=== PATIENT | male | born 1985 | race Caucasian/White ===

== ENCOUNTER 2018-08-01 09:49 | Day surgery (SDC) | payer OTHER ==
[2018-07-25 14:25] VITALS: BMI 31.5
[2018-08-01 10:54] VITALS: TEMP 98.1
[2018-08-01] MEDS ORDERED: PROPOFOL 20 ML ONE (11:32)
[2018-08-01] MEDS ORDERED: LIDOCAINE HCL/PF 2% SDV 5ML VIAL ONE (11:32)
[2018-08-01] MEDS ORDERED: MIDAZOLAM HCL 2 MG/2 ML SINGLE DOSE VIAL ONE ×2 (11:42)
[2018-08-01 12:42] VITALS: BP 124/76; PULSE 89
--- NOTE | 2018-08-03 12:31 | PATH ---
Surgical Pathology Report Patient Name: DMITRIY LIANG [facility]. Rec. #: [id number] /Age/Gender: 1985 (Age: 33) / M Account: [id number] Location: [facility] Taken: 08/01/2018 Received: 08/01/2018 Reported: 08/03/2018 Physicians: Ayah Beckford M.D. Specimen(s) Received A: SECOND PORTION DUODENUM B: BX ANTRUM C: BX GE JUNCTION Clinical History GI bleed Postoperative diagnosis: Gastritis Final Diagnosis A. SECOND PORTION OF DUODENUM, BIOPSY: DUODENAL MUCOSA WITH NO PATHOLOGIC FINDINGS. B. ANTRUM, BIOPSY: MILD CHRONIC GASTRITIS. IMMUNOSTAIN IS NEGATIVE FOR H. PYLORI ORGANISMS. C. GE JUNCTION, BIOPSY: COLUMNAR (GASTRIC CARDIA-TYPE) MUCOSA SHOWING MILD CHRONIC INFLAMMATION. NEGATIVE FOR INTESTINAL METAPLASIA. NO ESOPHAGEAL (SQUAMOUS) MUCOSA IS IDENTIFIED. Electronically Signed Maryuri Chow M.D. Gross Description A. Received in formalin, labeled "biopsy second portion of duodenum" is a yepez, irregular portion of soft tissue measuring 0.6 cm. in greatest dimension. The specimen is submitted in toto in one cassette. B. Received in formalin, labeled "antrum" is a yepez, irregular portion of soft tissue measuring 0.3 cm. in greatest dimension. The specimen is submitted in toto in one cassette. C. Received in formalin, labeled "GE junction" is a yepez, irregular portion of soft tissue measuring 0.4 cm. in greatest dimension. The specimen is submitted in toto in one cassette. 08/01/201808/01/2018
== END 2018-08-01 12:45 | disposition home or self-care (01) ==
LOC: FASU-ENDO 09:49
PROVIDERS: ATTEND Internal Medicine Gastroenterology
PROC: 0DB68ZX Excision of Stomach, Via Natural or Artificial Opening Endoscopic, Diagnostic (ICD-10-PCS; 2018-08-01)
PROC: 0DB58ZX Excision of Esophagus, Via Natural or Artificial Opening Endoscopic, Diagnostic (ICD-10-PCS; 2018-08-01)
PROC: 0DB98ZX Excision of Duodenum, Via Natural or Artificial Opening Endoscopic, Diagnostic (ICD-10-PCS; principal; 2018-08-01 12:02)
DX: K29.50 Unspecified chronic gastritis without bleeding (principal); K92.0 Hematemesis
CPT/HCPCS: 76700-TC; 88305-TC; 88342-TC

== ENCOUNTER 2018-10-29 06:32 | Day surgery (SDC) | payer OTHER ==
[2018-10-25 15:18] VITALS: BMI 30.4
[2018-10-29 07:26] LABS: COCAINE, UR NEGATIVE ng/ml (CUTOFF=300); METHADONE, UR NEGATIVE ng/ml (CUTOFF=300); PHENCYCLIDINE,URINE NEGATIVE ng/ml (CUTOFF=25); URINE AMPHETAMINES NEGATIVE ng/ml (CUTOFF=500); URINE BARBITURATES NEGATIVE ng/ml (CUTOFF=200); URINE BENZODIAZEPINES NEGATIVE ng/ml (CUTOFF=200)
[2018-10-29 07:31] LABS: OPIATES, URI POSITIVE ng/ml (CUTOFF=300)
[2018-10-29] MEDS ORDERED: BUPIVACAINE HCL/PF 0.25% (2.5MG/ML) 10 ML VIAL ONE (07:38)
[2018-10-29] MEDS ORDERED: methylPREDNISolone ACET (DEPO) 80 MG/1 ML VIAL ONE (07:38)
[2018-10-29] MEDS ORDERED: MIDAZOLAM HCL 2 MG/2 ML SINGLE DOSE VIAL ONE ×5 (08:46→08:58)
[2018-10-29] MEDS ORDERED: DEXAMETHASONE SOD PHOSPHATE 4 MG/1 ML VIAL ONE (08:49)
[2018-10-29] MEDS ORDERED: oxyCODONE HCL 5 MG TABLET PO PRN (08:57)
[2018-10-29] MEDS ORDERED: ONDANSETRON 4 MG/2 ML VIAL IVPUSH PRN (08:57)
[2018-10-29] MEDS ORDERED: LACTATED RINGERS SOLUTION 1,000 ML IV SCH (09:00)
[2018-10-29] MEDS ORDERED: BUPIVACAINE HCL/PF 0.25% (2.5MG/ML) 10 ML VIAL IJ ONE (09:03)
[2018-10-29] MEDS ORDERED: methylPREDNISolone ACET (DEPO) 80 MG/1 ML VIAL IM ONE (09:04)
[2018-10-29] MEDS ORDERED: LIDOCAINE HCL 1%, 10 MG/ML (20ML VIAL) NR ONE ×2 (09:04)
[2018-10-29 10:24] VITALS: TEMP 98
[2018-10-29 11:00] VITALS: BP 138/82; PULSE 75
--- NOTE | 2018-10-30 06:54 | OP ---
DATE OF OPERATION: 10/29/2018 PREOPERATIVE DIAGNOSES: 1. 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 2. Hepatitis C. 3. Alcohol dependence. POSTOPERATIVE DIAGNOSES: 1. 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 2. Hepatitis C. 3. Alcohol dependence. ATTENDING SURGEON: Delta Vargas MD PROCEDURE: 1. Right L5-S1 epidural injection. 2. Intraoperative fluoroscopy/. ANESTHESIA: Local with IV sedation. SAMPLE CASE PORTER: CHARGE WEIGHER ESTIMATED BLOOD LOSS: Minimal. INDICATION: The patient is a 33-year-old male with intractable lower back pain, right greater than left, lower extremity radiculopathy. Because of intractable symptoms and failure of conservative treatment he is here for 1st epidural steroid injection. The risks of the procedure include but are not limited to bleeding, infection, spinal headache and neurological injury. The patient understands indication for the procedure, procedure in detail, risks and benefits and alternatives for treatment for his lumbar condition and wished to proceed with injection. No guarantees were given for a favorable outcome. This is the 1st injection. Because he has a history of alcohol dependence and recently abstaining from taking alcohol, he has some tremor this morning. Discussion was made with the anesthesia service and the patient will be given Versed for withdrawal prophylaxis as well as for his anxiety. PROCEDURE IN DETAIL: After the patient was taken to the operating room he was placed in the prone position with a pillow under his hips. Lumbar region cleaned with alcohol and prepped with Betadine. Skin wheal was raised with 5 mL of 1% lidocaine. A 22-gauge spinal needle was inserted under AP and lateral fluoroscopic guidance from a right-sided approach to the lateral recess of L5-S1. Loss of resistance technique was utilized. There was no CSF or blood backflow. Needle position was verified with AP and lateral fluoroscopic guidance. The needle was turned cephalad and 80 mg of Depo-Medrol and 2 mL of 0.25% Marcaine were injected. The needle was withdrawn and sterile bandage was applied. The patient tolerated the procedure well, was turned back to the supine position, moving bilateral extremities well. He did not complain of headache. Rad STEVEN/[id number]
== END 2018-10-29 11:06 | disposition home or self-care (01) ==
LOC: JASU-SURG 06:32
PROVIDERS: ATTEND Neurological Surgery
PROC: 3E0R33Z Introduction of Anti-inflammatory into Spinal Canal, Percutaneous Approach (ICD-10-PCS; 2018-10-29)
PROC: B01BZZZ Fluoroscopy of Spinal Cord (ICD-10-PCS; 2018-10-29)
PROC: 3E0R3BZ Introduction of Anesthetic Agent into Spinal Canal, Percutaneous Approach (ICD-10-PCS; principal; 2018-10-29 08:30)
DX: M51.17 Intervertebral disc disorders with radiculopathy, lumbosacral region (principal); J45.909 Unspecified asthma, uncomplicated; B19.20 Unspecified viral hepatitis C without hepatic coma; E66.9 Obesity, unspecified; F10.20 Alcohol dependence, uncomplicated
CPT/HCPCS: 36415; 80307; 94760

== ENCOUNTER 2018-11-26 07:04 | Day surgery (SDC) | payer OTHER | END 2018-11-26 09:35 | disposition home or self-care (01) | LOC: JASU-SURG 07:04 ==

== ENCOUNTER 2019-01-25 11:37 | Inpatient (IN) | payer OTHER ==
[2019-01-25] MEDS ORDERED: SODIUM CHLORIDE 1,000 ML IV STA (12:30)
[2019-01-25] MEDS ORDERED: diazePAM 5 MG TABLET PO ONE (12:32)
[2019-01-25] MEDS ORDERED: ONDANSETRON 4 MG/2 ML VIAL IVPUSH ONE (12:32)
[2019-01-25] MEDS ORDERED: FAMOTIDINE 20 MG/50 ML IVPB 20 MG/50 ML MG IVPB ONE ×2 (12:32→13:25)
[2019-01-25] MEDS ORDERED: oxyCODONE HCL 5 MG TABLET PO ONE (12:48)
[2019-01-25] MEDS ORDERED: ONDANSETRON 4 MG/2 ML VIAL ONE (13:25)
[2019-01-25] MEDS ORDERED: oxyCODONE HCL 5 MG TABLET ONE (13:25)
[2019-01-25] MEDS ORDERED: diazePAM 5 MG TABLET ONE (13:38)
[2019-01-25 14:05] LABS: BASO % 0.4 % (0-2.0); EOS % 1.8 % (0-4.5); HEMATOCRIT 41.7 % (35.4-49); HEMOGLOBIN 14.6 GM/dL (11.7-16.9); LYMPH % 12.5 % (8-40); MCHC 34.9 g/dl (32.0-35.9); MEAN CELL VOLUME 120.2 fl (80-96); MEAN PLT VOLUME 8.1 fl (7.5-11.1); MONO % 4.7 % (3.8-10.2); NEUT % 80.6 % (42.8-82.8); PLATELET COUNT 167 K/MM3 (134-434); RBC 3.47 M/mm3 (4.00-5.60); RDW 14.8 % (11.9-15.9); WHITE BLOOD COUNT 9.3 K/mm3 (4.0-10.0)
[2019-01-25 14:42] LABS: ALBUMIN 4.1 g/dl (3.4-5.0); BILIRUBIN,TOTAL 1.7 mg/dL (0.2-1); CALCIUM 9.8 mg/dL (8.5-10.1); CREATININE 0.5 mg/dL (0.55-1.3); MAGNESIUM 1.7 mg/dL (1.8-2.4); POTASSIUM 3.9 mmol/L (3.5-5.1); TOT PROT 8.3 g/dl (6.4-8.2)
--- NOTE | 2019-01-25 14:49 | PDOC ---
History of Present Illness - General History Source: Patient Exam Limitations: No Limitations <Maribel Ortiz - Last Filed: 01/25/19 15:33> <Mary Carty - Last Filed: 01/26/19 07:33> - General Chief Complaint: Pain Stated Complaint: SENT BY PCP, DETOX FROM ALCOHOL Time Seen by Provider: 01/25/19 12:06 Past History - Past Medical History Anemia: Yes (YRS AGO- RESOLVED) Asthma: Yes (CHILDHOOD ONLY) Cancer: No Cardiac Disorders: No CVA: No COPD: No CHF: No Dementia: No Diabetes: No GI Disorders: Yes (REFLUX) Disorders: No HTN: No Hypercholesterolemia: No Liver Disease: Yes (HEP C) Seizures: Yes (2016-DRUG WITHDRAWAL) Thyroid Disease: No - Surgical History Abdominal Surgery: No Appendectomy: No Cardiac Surgery: No Cholecystectomy: No Lung Surgery: No Neurologic Surgery: No Orthopedic Surgery: Yes (LEFT WRIST) - Suicide/Smoking/Psychosocial Hx Smoking History: Current every day smoker Have you smoked in the past 12 months: Yes Number of Cigarettes Smoked Daily: 8 Information on smoking cessation initiated: Yes 'Breaking Loose' booklet given: 10/25/18 Hx Alcohol Use: Yes Drug/Substance Use Hx: No Substance Use Type: Alcohol, Marijuana, Opiates, Tranquilizers Hx Substance Use Treatment: Yes (LAST COCAINE USE- 2011) <Maribel Ortiz - Last Filed: 01/25/19 15:33> <Mary Carty - Last Filed: 01/26/19 07:33> - Past Medical History Allergies/Adverse Reactions: Allergies Allergy/AdvReac Type Severity Reaction Status Date / Time No Known Allergies Allergy Verified 01/25/19 11:42 Home Medications: Ambulatory Orders Pantoprazole Sodium [Protonix] 40 mg PO DAILY 10/25/18 Tramadol HCl 50 mg PO PRN PRN 01/25/19 *Physical Exam - Vital Signs Last Vital Signs Temp Pulse Resp BP Pulse Ox 98.3 F 94 H 19 139/89 98 01/25/19 11:39 01/25/19 11:39 01/25/19 11:39 01/25/19 11:39 01/25/19 11:39 - Physical Exam General Appearance: No: Apparent Distress HEENT: positive: MICHELLE Respiratory/Chest: positive: Lungs Clear, Normal Breath Sounds. negative: Respiratory Distress Cardiovascular: positive: Regular Rhythm, Regular Rate, S1, S2. negative: Murmur Gastrointestinal/Abdominal: positive: Normal Bowel Sounds, Soft. 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 negative: Facial Droop, Confused, Disoriented <Maribel Ortiz - Last Filed: 01/25/19 15:33> - Vital Signs Last Vital Signs Temp Pulse Resp BP Pulse Ox 98 F 97 H 20 134/79 95 01/26/19 02:00 01/26/19 02:00 01/26/19 02:00 01/26/19 02:00 01/25/19 20:11 <Mary Carty - Last Filed: 01/26/19 07:33> ED Treatment Course - LABORATORY CBC & Chemistry Diagram: 01/25/19 13:00 01/25/19 12:38 - Medications Given in the ED: ED Medications Discontinued Medications Generic Name Dose Route Start Last Admin Trade Name Freq PRN Reason Stop Dose Admin Diazepam 5 mg 01/25/19 12:32 01/25/19 13:44 Valium - PO 01/25/19 12:33 5 mg ONCE ONE Administration Sodium Chloride 1,000 mls @ 1,000 mls/hr 01/25/19 12:30 01/25/19 13:36 Normal Saline - IV 01/25/19 13:29 1,000 mls/hr ASDIR STA Administration Famotidine/Sodium Chloride 20 mg in 50 mls @ 100 mls/hr 01/25/19 12:32 13:36 Pepcid 20 Mg Premixed Ivpb - IVPB 01/25/19 13:01 100 mls/hr ONCE ONE Administration Ondansetron HCl 4 mg 01/25/19 12:32 01/25/19 13:36 Zofran Injection IVPUSH 01/25/19 12:33 4 mg ONCE ONE Administration Oxycodone HCl 10 mg 01/25/19 12:48 01/25/19 13:44 Roxicodone - PO 01/25/19 12:49 10 mg ONCE ONE Administration <Maribel Ortiz - Last Filed: 01/25/19 15:33> - LABORATORY CBC & Chemistry Diagram: 01/25/19 13:00 01/25/19 12:38 - ADDITIONAL ORDERS Additional order review: 01/25/19 13:00 RBC 3.47 L MCV 120.2 H MCHC 34.9 RDW 14.8 MPV 8.1 Neutrophils % 80.6 Lymphocytes % 12.5 Monocytes % 4.7 Eosinophils % 1.8 Basophils % 0.4 - Medications Given in the ED: ED Medications Discontinued Medications Generic Name Dose Route Start Last Admin Trade Name Giuseppeq PRN Reason Stop Dose Admin Diazepam 5 mg 01/25/19 12:32 01/25/19 13:44 Valium - PO 01/25/19 12:33 5 mg ONCE ONE Administration Folic Acid 1 mg 01/25/19 15:25 01/25/19 18:12 Folic Acid - PO 01/25/19 15:26 1 mg ONCE ONE Administration Sodium Chloride 1,000 mls @ 1,000 mls/hr 01/25/19 12:30 01/25/19 13:36 Normal Saline - IV 01/25/19 13:29 1,000 mls/hr ASDIR STA Administration Famotidine/Sodium Chloride 20 mg in 50 mls @ 100 mls/hr 01/25/19 12:32 13:36 Pepcid 20 Mg Premixed Ivpb - IVPB 01/25/19 13:01 100 mls/hr ONCE ONE Administration Magnesium Sulfate 2 gm 01/25/19 14:50 01/25/19 16:59 Magnesium Sulfate IVPB 01/25/19 14:51 2 gm ONCE ONE Administration Ondansetron HCl 4 mg 01/25/19 12:32 01/25/19 13:36 Zofran Injection IVPUSH 01/25/19 12:33 4 mg ONCE ONE Administration Oxycodone HCl 10 mg 01/25/19 12:48 01/25/19 13:44 Roxicodone - PO 01/25/19 12:49 10 mg ONCE ONE Administration Thiamine HCl 100 mg 01/25/19 15:32 01/25/19 18:12 Vitamin B1 - PO 01/25/19 15:33 100 mg ONCE ONE Administration <Keisha Cartyth - Last Filed: 01/26/19 07:33> Medical Decision Making - Medical Decision Making 34 y/o M hx of L5-S1 herniated disc with s1 nerve impingement, R hip arthritis, neuropathy, R knee enchondroma, seizures (not on meds), fatty liver, alcohol abuse, polysubstance abuse (states has been clean since 2013 and only uses marijuana occasionally for pain) was sent in by Dr. Goldberg for admission for acute on chronic pain management and detox. Patient has been suffering from chronic pain for >1 year and it has gradually gotten worse over the past few days. Patient also mentions drinking alcohol heavily for 10-15 years (states has been using alcohol to help with his pain); last drink was today. Patient mostly with pain along R hip, lower back and R knee. Patient had MRI 08/2018 showing herniated disc L5-S1. He has been following with neurosurgery, Dr. Vargas, who has been giving him steroid injections to his back; he last saw him November 2018. Patient also having chronic emesis and watery diarrhea for > 1 year. He had an endoscopy done this year due to severe gastritis; he is currently taking Protonix for this. Patient saw Dr. Goldberg (covering for Dr. Smallwood) recently for worsening pain and patient was advised to come to ED for admission. Dr. Goldberg gave him Tramadol which patient has been taking for 3 days without much relief of pain. Denies fever, URI sxs, sob, cp, abd pain, urinary complaints. Of note, patient mentions also feeling depressed due to his pain but has made no active plans for suicide and has had no prior suicidal attempts; mentions he had depression several years ago and saw psychiatrist when he was a child but is not on any antidepressants. Acute on chronic pain Labs reviewed Given Mg, folic acid, thiamine Given Valium and oxycodone for pain control [of note, iStop was checked prior to giving meds] Of note, LFTs were elevated prior as well and patient had RUQ sono showing fatty liver Utox pending D/W Dr. Murrieta for admission; would also like hepatitis panel and states also to start librium 50 mg TID 01/25/19 14:21 <Maribel Ortiz - Last Filed: 01/25/19 15:33> *DC/Admit/Observation/Transfer - Discharge Dispostion Decision to Admit order: Yes <Maribel Ortiz - Last Filed: 01/25/19 15:33> - Attestations Physician Attestion: I reviewed the case with the mid-level practitioner and agree with the mid- level practitioner's assessment, diagnosis and disposition. <Mary Carty - Last Filed: 01/26/19 07:33> Diagnosis at time of Disposition: Chronic pain Qualifiers: Chronic pain type: other chronic pain Qualified Code(s): G89.29 - Other chronic pain - Discharge Dispostion Condition at time of disposition: Stable
[2019-01-25] MEDS ORDERED: MAGNESIUM SULF 50% (8.12 MEQ/2 ML-1 GM VIAL) IVPB ONE (14:50)
[2019-01-25] MEDS ORDERED: MAGNESIUM SULF 50% (8.12 MEQ/2 ML-1 GM VIAL) ONE (15:25)
[2019-01-25] MEDS ORDERED: THIAMINE HCL 100 MG TABLET (FP) ONE (16:30)
[2019-01-25] MEDS ORDERED: FOLIC ACID 1 MG TABLET (FP) ONE (16:30)
[2019-01-25] MEDS: FOLIC ACID 1 MG TABLET (FP) PO ONE ×3 (16:36→18:12)
[2019-01-25] MEDS: THIAMINE HCL 100 MG TABLET (FP) PO ONE ×3 (16:36→18:12)
[2019-01-25 17:06] LABS: COCAINE, UR NEGATIVE ng/ml (CUTOFF=300); METHADONE, UR NEGATIVE ng/ml (CUTOFF=300); PHENCYCLIDINE,URINE NEGATIVE ng/ml (CUTOFF=25); URINE AMPHETAMINES NEGATIVE ng/ml (CUTOFF=500); URINE BARBITURATES NEGATIVE ng/ml (CUTOFF=200)
[2019-01-25 18:11] LABS: URINE BENZODIAZEPINES POSITIVE ng/ml (CUTOFF=200)
[2019-01-25 18:12] LABS: OPIATES, URI POSITIVE ng/ml (CUTOFF=300)
[2019-01-25 20:15] VITALS: BMI 29.3
[2019-01-25 20:21] LABS: ANISOCYTOSIS 3+; HELMET CELLS 1+; MACROCYTOSIS 3+; PLATELET ESTIMATE NORMAL
[2019-01-25] MEDS: ONDANSETRON 4 MG/2 ML VIAL IVPUSH PRN (21:02)
[2019-01-25] MEDS: chlordiazePOXIDE HCL 25 MG CAPSULE PO SCH (21:35)
[2019-01-25] MEDS: oxyCODONE HCL 5 MG TABLET PO PRN (21:35)
[2019-01-26] MEDS: chlordiazePOXIDE HCL 25 MG CAPSULE PO SCH ×3 (05:13→21:37)
[2019-01-26] MEDS: oxyCODONE HCL 5 MG TABLET PO PRN ×4 (05:14→23:27)
[2019-01-26 07:06] LABS: HEMATOCRIT 36.3 % (35.4-49); HEMOGLOBIN 12.5 GM/dL (11.7-16.9); MCHC 34.4 g/dl (32.0-35.9); MEAN PLT VOLUME 8.3 fl (7.5-11.1); PLATELET COUNT 124 K/MM3 (134-434); RBC 3.02 M/mm3 (4.00-5.60); RDW 14.5 % (11.9-15.9); WHITE BLOOD COUNT 5.9 K/mm3 (4.0-10.0)
[2019-01-26 07:41] LABS: MCH 41.3 pg (25.7-33.7)
[2019-01-26 07:49] LABS: ALBUMIN 3.4 g/dl (3.4-5.0); BLOOD UREA NITROGEN 8.5 mg/dL (7-18); CALCIUM 9.1 mg/dL (8.5-10.1); CREATININE 0.4 mg/dL (0.55-1.3); POTASSIUM 4.1 mmol/L (3.5-5.1); TOT PROT 6.7 g/dl (6.4-8.2)
[2019-01-26] MEDS: THIAMINE HCL 100 MG TABLET (FP) PO SCH (10:38)
[2019-01-26] MEDS: PANTOPRAZOLE 40 MG TABLET (FP) PO SCH (10:38)
[2019-01-26] MEDS: FOLIC ACID 1 MG TABLET (FP) PO SCH (10:38)
[2019-01-26] MEDS: ONDANSETRON 4 MG/2 ML VIAL IVPUSH PRN (10:47)
--- NOTE | 2019-01-26 12:06 | HP ---
Admitting History and Physical - Primary Care Physician PCP: Silvestre Goldberg - Admission Chief Complaint: Difficulty ambulating, lower extremity weakness History of Present Illness: Patient is a 34 y/o male with past medical history of L5-S1 herniated disc with s1 nerve impairment, R hip arthritis, Neuropathy, R knee echondroma, Seizures, fatty liver, ETOH abuse, polysubstance abuse. Patient was sent by PCP to ER for alcohol detox and difficulty ambulating due to lower extremity weakness and pain. Patient says he has been suffering from chronic pain to lower back, right hip, and right lower extremity. Patient states he has been drinking more than 1 L of whiskey or vodka daily for 22 years. History Source: Patient Limitations to Obtaining History: No Limitations - Past Medical History Musculoskeletal: Yes: Chronic low back pain - Smoking History Smoking history: Former smoker Have you smoked in the past 12 months: Yes Aproximately how many cigarettes per day: 8 If you are a former smoker, when did you quit?: last week - Alcohol/Substance Use Hx Alcohol Use: Yes - Social History ADL: Independent History of Recent Travel: No Home Medications - Allergies Allergies/Adverse Reactions: Allergies Allergy/AdvReac Type Severity Reaction Status Date / Time No Known Allergies Allergy Verified 01/25/19 11:42 - Home Medications Home Medications: Ambulatory Orders Pantoprazole Sodium [Protonix] 40 mg PO DAILY 10/25/18 Tramadol HCl 50 mg PO PRN PRN 01/25/19 Review of Systems - Review of Systems Constitutional: reports: Weakness Eyes: reports: Blurred Vision HENT: reports: Throat Pain Neck: reports: No Symptoms Cardiovascular: reports: Chest Pain, Palpitations Respiratory: reports: SOB Gastrointestinal: reports: Abdominal Pain, Nausea Genitourinary: reports: No Symptoms Breasts: reports: No Symptoms Reported Musculoskeletal: reports: Back Pain, Extremity Pain (rle), Muscle Weakness Integumentary: reports: No Symptoms Neurological: reports: Weakness (rle) Endocrine: reports: No Symptoms Hematology/Lymphatic: reports: No Symptoms Psychiatric: reports: No Symptoms Physical Examination Vital Signs: Vital Signs Temperature 97.7 F 01/26/19 06:00 Pulse Rate 94 H 01/26/19 06:00 Respiratory Rate 20 01/26/19 06:00 Blood Pressure 124/71 01/26/19 06:00 O2 Sat by Pulse Oximetry (%) 95 01/25/19 20:11 Constitutional: Yes: No Distress, Calm Eyes: Yes: Conjunctiva Clear HENT: Yes: Atraumatic Neck: Yes: Supple Cardiovascular: Yes: Regular Rate and Rhythm Respiratory: Yes: Regular, CTA Bilaterally Gastrointestinal: Yes: Normal Bowel Sounds, Soft, Tenderness (diffuse) Musculoskeletal: Yes: Back Pain, Muscle Weakness (RLE) Extremities: Yes: WNL Edema: No Neurological: Yes: Alert, Oriented Psychiatric: Yes: Alert, Oriented Labs: CBC, BMP 01/26/19 06:25 01/26/19 06:25 Problem List - Problems (1) Chest pain Assessment/Plan: -EKG and troponin STAT Code(s): R07.9 - CHEST PAIN, UNSPECIFIED (2) Abdominal pain Assessment/Plan: -Abdominal US -GI consult -Zofran prn for nausea Code(s): R10.9 - UNSPECIFIED ABDOMINAL PAIN (3) Chronic pain Assessment/Plan: -pain management consult Code(s): G89.29 - OTHER CHRONIC PAIN Qualifiers: Chronic pain type: other chronic pain Qualified Code(s): G89.29 - Other chronic pain (4) Weakness of right lower extremity Assessment/Plan: -Neurology consult -fall precaution Code(s): R29.898 - OTH SYMPTOMS AND SIGNS INVOLVING THE MUSCULOSKELETAL SYSTEM (5) ETOH abuse Assessment/Plan: -Dr Toney consulted -Librium taper -seizure precautions -MVI, Thiamine, Folic Acid -Psych consult Code(s): F10.10 - ALCOHOL ABUSE, UNCOMPLICATED Assessment/Plan see problem list
--- NOTE | 2019-01-26 15:16 | EKG ---
Test Reason : Blood Pressure : / mmHG Vent. Rate : 082 BPM Atrial Rate : 082 BPM P-R Int : 152 ms QRS Dur : 104 ms QT Int : 392 ms P-R-T Axes : 050 018 034 degrees QTc Int : 457 ms NORMAL SINUS RHYTHM NORMAL ECG NO PREVIOUS ECGS AVAILABLE Confirmed by MD Hernan, Kulwant ([id number]) on 01/26/2019 3:16:17 PM Referred By: Shakir DACOSTA Confirmed By:Kulwant Becerra MD
--- NOTE | 2019-01-26 15:39 | CON.PSY ---
Psychiatry Consult Chief Complaint: 34 Yewra old male with a long history of Alcohol abuse and dependence seen for DEpression. I drink amd I have Neuropathy. Symptoms: reports: Depressed Mood - Previous Psychiatric Treatment Outpatient: None Inpatient: None - Previous Substance Abuse Treatment Outpatient: None Inpatient: None, Within the last 12 months - Reason for Previous Treatment Reason for Previous Treatment: Alcohol Abuse - Current Medications Current Medications: Active Medications Chlordiazepoxide HCl (Librium -) 50 mg PO TID [facility] Last Admin: 01/26/19 15:00 Dose: 50 mg Folic Acid (Folic Acid -) 1 mg PO DAILY [facility] Last Admin: 01/26/19 10:38 Dose: 1 mg Multivitamins/Minerals/Vitamin C (Tab-A-Vit -) 1 tab PO DAILY [facility] Ondansetron HCl (Zofran Injection) 4 mg IVPUSH Q8H PRN PRN Reason: NAUSEA Last Admin: 01/26/19 10:47 Dose: 4 mg Oxycodone HCl (Roxicodone -) 10 mg PO Q6H PRN PRN Reason: PAIN LEVEL 6-10 Last Admin: 01/26/19 11:26 Dose: 10 mg Pantoprazole Sodium (Protonix -) 40 mg PO DAILY [facility] Last Admin: 01/26/19 10:38 Dose: 40 mg Thiamine HCl (Vitamin B1 -) 100 mg PO DAILY [facility] Last Admin: 01/26/19 10:38 Dose: 100 mg - Allergies Allergies: Allergies Allergy/AdvReac Type Severity Reaction Status Date / Time No Known Allergies Allergy Verified 01/25/19 11:42 - Current Living Status Usual Living Arrangement: Alone - Current Mental Status Evaluation Appearance: Well Groomed Attitude: Cooperative - Affect Affect: Constrictive Appropriateness: Appropriate to Content - Mood Mood: Euthymic - Speech/Language Expressive: Coherent - Psychomotor Activity Psychomotor Activity: Normal - Thought Process Thought Process: Intact - Thought Content Hallucinations: Absent Delusions: Absent - Self Perception Self Perception: No Impairment - Cognition Attention: Alert Orientation: Time Memory, Immediate Recall: Intact Memory, Short Term: 3/3 Memory, Remote with Promptin/3 - Concentration Serial Sevens Intact: Yes Simple Calculations Intact: Yes - Abstraction Proverb Interpretation: Intact Judgement: Intact - Insight Insight: Intact - Impulse Control Impulse Control: Minimally Impaired - Suicidal Ideation Suicidal Ideation: No - Homicidal Ideation Homicidal Ideation: No Assessment/Plan 1) No need for anti depressants at this tiume. 2) suggest Psych eval after Detox is complerterd. 3)_ follow up with dr. gracia.
[2019-01-27] MEDS: oxyCODONE HCL 5 MG TABLET PO PRN ×3 (05:49→23:30)
[2019-01-27] MEDS: chlordiazePOXIDE HCL 25 MG CAPSULE PO SCH (05:49)
[2019-01-27 09:12] LABS: HEMATOCRIT 36.2 % (35.4-49); HEMOGLOBIN 12.5 GM/dL (11.7-16.9); MCHC 34.5 g/dl (32.0-35.9); MEAN CELL VOLUME 121.6 fl (80-96); MEAN PLT VOLUME 8.4 fl (7.5-11.1); PLATELET COUNT 118 K/MM3 (134-434); RBC 2.98 M/mm3 (4.00-5.60); WHITE BLOOD COUNT 5.5 K/mm3 (4.0-10.0)
[2019-01-27] MEDS: PANTOPRAZOLE 40 MG TABLET (FP) PO SCH (09:26)
[2019-01-27] MEDS: MULTIVITAMINS (DAILY MVI) TABLET (FP) PO SCH (09:27)
[2019-01-27] MEDS: FOLIC ACID 1 MG TABLET (FP) PO SCH (09:27)
[2019-01-27] MEDS: THIAMINE HCL 100 MG TABLET (FP) PO SCH (09:27)
[2019-01-27] MEDS: KETOROLAC TROMETHAMINE 30 MG/1 ML VIAL IM PRN (09:31)
[2019-01-27 09:38] LABS: ALBUMIN 3.4 g/dl (3.4-5.0); BILIRUBIN,TOTAL 1.6 mg/dL (0.2-1); BLOOD UREA NITROGEN 8.9 mg/dL (7-18); CALCIUM 9.2 mg/dL (8.5-10.1); CREATININE 0.5 mg/dL (0.55-1.3); POTASSIUM 4.1 mmol/L (3.5-5.1); TOT PROT 7.1 g/dl (6.4-8.2)
--- NOTE | 2019-01-27 10:34 | CON.NEURO ---
Consult - Past Medical History Musculoskeletal: Yes: Chronic low back pain - Alcohol/Substance Use Hx Alcohol Use: Yes - Smoking History Smoking history: Former smoker Have you smoked in the past 12 months: Yes Aproximately how many cigarettes per day: 8 If you are a former smoker, when did you quit?: last week - Social History Usual Living Arrangement: Alone ADL: Independent History of Recent Travel: No Home Medications - Allergies Allergies/Adverse Reactions: Allergies Allergy/AdvReac Type Severity Reaction Status Date / Time No Known Allergies Allergy Verified 01/25/19 11:42 - Home Medications Home Medications: Ambulatory Orders Pantoprazole Sodium [Protonix] 40 mg PO DAILY 10/25/18 Tramadol HCl 50 mg PO PRN PRN 01/25/19 Physical Exam-Neuro Vital Signs: Vital Signs Temperature 98.9 F 01/27/19 06:00 Pulse Rate 92 H 01/27/19 06:00 Respiratory Rate 20 01/27/19 06:00 Blood Pressure 124/75 01/27/19 06:00 O2 Sat by Pulse Oximetry (%) 95 01/26/19 09:00 Labs: CBC, BMP 01/27/19 07:50 01/27/19 07:50 Assessment/Plan cc Lower back pain and difficulty moving legs for months and more so since january 23 HPI 34 year old male history fo L 5-S1 radciuloapthy, right hip arthritis, alcohol abuse, seizure, fatty liver and poly substance abuse. Patient had two epi in past and saw dr roman in past . He says he had mri of L spine and recently has been having difficulty ambulating. During interview he is very abusive and using f words many times and he has pain all over the body, he was not cooperative and insisted on looking at chart rather than cooperate with history or exam. He has been drinking whisky everyday. He also complain of urgency of urination and defecttion. PMH as above FH SH,ROS reviewed in chart Allergies/Adverse Reactions: Allergies Allergy/AdvReac Type Severity Reaction Status Date / Time No Known Allergies Allergy Verified 01/25/19 11:42 - Home Medications Home Medications: Ambulatory Orders Pantoprazole Sodium [Protonix] 40 mg PO DAILY 10/25/18 Tramadol HCl 50 mg PO PRN PRN 01/25/19 NEUROLOGICAL EXAMINATION Alert oriented x 3, neck is supple febrile eomi, pupils reactive, no face asymmetry upper extremity 5/5 lower extremity there is hip flexion weakness grade 4, and hip extension, and knee flexion and extension is grade 5 bilaterally there is slr is positive on right side, right leg is weaker than left there is dorsiflexion of right ankle 4/5 reflex are generalized diminished there is hyperasthesia in lower extremity upto both inguinal area dimnished sensation on upper extremity Assessment/Plan 1. Acute on chronic low back pain with worsening of weakness , more so on right leg than left. Patient is quite abusive and not cooperative . 2. Peripheral neuropathy 3. alcohol abuse Plan: mri of t and L spine - PT - Pain management - start gabapnetin 600 mg po tid and Nabumetone 500 mg po bid - b12,foalte tsh - emg for lower extremity - psych consult aprepciated Thanking you so much Ezio Souza MD
--- NOTE | 2019-01-27 11:03 | PN ---
Progress Note, Physician Chief Complaint: Etoh Abuse Lower Extremity Weakness History of Present Illness: Previous notes and events reviewed awake and alert NAD patient was found lying on R side on floor in room, patient became frustrated with room mate and threw water pitcher on floor, he then attempted to ambulate from bed, unknown if he hit his head, no LOC after placed back in bed patient then noted to be sitting up on side of bed stating he wanted to get up, patient educated on not getting out of bed without assistance due to his initial admission complaint of difficulty ambulating and his recent fall - Current Medication List Current Medications: Active Medications Chlordiazepoxide HCl (Librium -) 50 mg PO TID [facility] Last Admin: 01/27/19 05:49 Dose: 50 mg Folic Acid (Folic Acid -) 1 mg PO DAILY [facility] Last Admin: 01/27/19 09:27 Dose: 1 mg Ketorolac Tromethamine (Toradol Injection -) 30 mg IM Q12H PRN PRN Reason: PAIN SCALE 7-10 Stop: 01/29/19 16:45 Last Admin: 01/27/19 09:31 Dose: 30 mg Multivitamins/Minerals/Vitamin C (Tab-A-Vit -) 1 tab PO DAILY [facility] Last Admin: 01/27/19 09:27 Dose: 1 tab Ondansetron HCl (Zofran Injection) 4 mg IVPUSH Q8H PRN PRN Reason: NAUSEA Last Admin: 01/26/19 10:47 Dose: 4 mg Oxycodone HCl (Roxicodone -) 10 mg PO Q6H PRN PRN Reason: PAIN LEVEL 6-10 Last Admin: 01/27/19 05:49 Dose: 10 mg Pantoprazole Sodium (Protonix -) 40 mg PO DAILY [facility] Last Admin: 01/27/19 09:26 Dose: 40 mg Thiamine HCl (Vitamin B1 -) 100 mg PO DAILY [facility] Last Admin: 01/27/19 09:27 Dose: 100 mg - Objective Vital Signs: Vital Signs Temperature 98.9 F 01/27/19 06:00 Pulse Rate 92 H 01/27/19 06:00 Respiratory Rate 20 01/27/19 06:00 Blood Pressure 124/75 01/27/19 06:00 O2 Sat by Pulse Oximetry (%) 95 01/26/19 09:00 Constitutional: Yes: No Distress, Calm Eyes: Yes: Conjunctiva Clear HENT: Yes: Atraumatic Neck: Yes: Other (no cervical tenderness) Cardiovascular: Yes: Regular Rate and Rhythm Respiratory: Yes: Regular, CTA Bilaterally Gastrointestinal: Yes: Normal Bowel Sounds, Soft Musculoskeletal: Yes: Muscle Weakness Extremities: Yes: WNL Edema: No Neurological: Yes: Alert, Weakness Psychiatric: Yes: Alert Labs: CBC, BMP 01/27/19 07:50 01/27/19 07:50 Problem List - Problems (1) Chest pain Assessment/Plan: -EKG reviewed -trop neg -resolved Code(s): R07.9 - CHEST PAIN, UNSPECIFIED (2) Abdominal pain Assessment/Plan: -Abdominal US reviewed shows hepatomegaly and diffuse fatty infiltration of liver -GI consult -Zofran prn for nausea -clear liquid diet Code(s): R10.9 - UNSPECIFIED ABDOMINAL PAIN (3) Chronic pain Assessment/Plan: -pain management consult -Neurontin 600mg TID and Nabutemone 50 BID Code(s): G89.29 - OTHER CHRONIC PAIN Qualifiers: Chronic pain type: other chronic pain Qualified Code(s): G89.29 - Other chronic pain (4) Weakness of right lower extremity Assessment/Plan: -Neurology on board -MRI of Thoracic and Lumbar Spine -fall precaution Code(s): R29.898 - OTH SYMPTOMS AND SIGNS INVOLVING THE MUSCULOSKELETAL SYSTEM (5) ETOH abuse Assessment/Plan: -Dr Toney consulted -Librium taper -neuro checks -MVI, Thiamine, Folic Acid -Psych consult Code(s): F10.10 - ALCOHOL ABUSE, UNCOMPLICATED (6) Fall Assessment/Plan: -Fall precautions -Head CT scan STAT -R shoulder, R arm, B/L hip and pelvic xray, R tib/fib xray STAT -pain control Code(s): W19.XXXA - UNSPECIFIED FALL, INITIAL ENCOUNTER Assessment/Plan see problem list dvt ppx
--- NOTE | 2019-01-27 13:11 | PN ---
Progress Note, Physician Chief Complaint: verbalizes hunger, lack of sleep denies any abdominal pain, no nausea or vomiting, no black tarry stools History of Present Illness: Patient is a 34 year old male with a significant past medical history of L5-S1 herniated disc with s1 nerve impairment, R hip arthritis, neuropathy, R knee echondroma, seizures, fatty liver, ETOH abuse, polysubstance abuse. Patient was sent by PCP to ER for alcohol detox and difficulty ambulating due to lower extremity weakness and pain. Patient reports that he has been suffering from chronic pain to lower back, right hip, and right lower extremity. Patient states he has been drinking more than 1 L of whiskey or vodka daily for 22 years. Patient allowed a limited exam, he was very agitated over lack of sleep as well as not eating. denies any abdominal pain, no nausea/vomiting or headaches. from previous note: Earlier today, patient was found lying on right side on floor in room, patient became frustrated with room mate and threw water pitcher on floor, he then attempted to ambulate from bed, unknown if he hit his head, no LOC after placed back in bed patient then noted to be sitting up on side of bed stating he wanted to get up, patient educated on not getting out of bed without assistance due to his initial admission complaint of difficulty ambulating and his recent fall - Current Medication List Current Medications: Active Medications Chlordiazepoxide HCl (Librium -) 50 mg PO TID [facility] Last Admin: 01/27/19 05:49 Dose: 50 mg Folic Acid (Folic Acid -) 1 mg PO DAILY [facility] Last Admin: 01/27/19 09:27 Dose: 1 mg Gabapentin (Neurontin -) 600 mg PO TID [facility] Ketorolac Tromethamine (Toradol Injection -) 30 mg IM Q12H PRN PRN Reason: PAIN SCALE 7-10 Stop: 01/29/19 16:45 Last Admin: 01/27/19 09:31 Dose: 30 mg Multivitamins/Minerals/Vitamin C (Tab-A-Vit -) 1 tab PO DAILY [facility] Last Admin: 01/27/19 09:27 Dose: 1 tab Nabumetone (Relafen -) 500 mg PO BID [facility] Ondansetron HCl (Zofran Injection) 4 mg IVPUSH Q8H PRN PRN Reason: NAUSEA Last Admin: 01/26/19 10:47 Dose: 4 mg Oxycodone HCl (Roxicodone -) 10 mg PO Q6H PRN PRN Reason: PAIN LEVEL 6-10 Last Admin: 01/27/19 05:49 Dose: 10 mg Pantoprazole Sodium (Protonix -) 40 mg PO DAILY [facility] Last Admin: 01/27/19 09:26 Dose: 40 mg Thiamine HCl (Vitamin B1 -) 100 mg PO DAILY [facility] Last Admin: 01/27/19 09:27 Dose: 100 mg - Objective Vital Signs: Vital Signs Temperature 98.9 F 01/27/19 10:55 Pulse Rate 89 01/27/19 10:55 Respiratory Rate 20 01/27/19 10:55 Blood Pressure 126/79 01/27/19 10:55 O2 Sat by Pulse Oximetry (%) 95 01/26/19 09:00 Constitutional: Yes: Anxious Eyes: Yes: Sclera Icterus HENT: Yes: Atraumatic Neck: Yes: WNL Cardiovascular: Yes: Regular Rate and Rhythm Respiratory: Yes: WNL Labs: CBC, BMP 01/27/19 07:50 01/27/19 07:50 Problem List - Problems (1) ETOH abuse Assessment/Plan: CIWA 8. changed librium to ativan detox protocol addiction medicine consulted monitor for any signs of withdrawal. will add ativan 1mg IV prn for any acute or worsening signs of withdrawal. Code(s): F10.10 - ALCOHOL ABUSE, UNCOMPLICATED (2) Abdominal pain Assessment/Plan: denies abdominal pain, no further nausea or vomiting. no black tarry stools. no coffee ground emesis. will trial regular diet monitor Code(s): R10.9 - UNSPECIFIED ABDOMINAL PAIN (3) Chest pain Assessment/Plan: negative troponins, chest pain resolved. Code(s): R07.9 - CHEST PAIN, UNSPECIFIED (4) Chronic pain Assessment/Plan: pain management consulted by previous provider. on neurontin 600mg tid, nabutemone 50 bid Code(s): G89.29 - OTHER CHRONIC PAIN Qualifiers: Chronic pain type: other chronic pain Qualified Code(s): G89.29 - Other chronic pain (5) Fall Assessment/Plan: patient had a fall today in his room while attempting to ambulate maintain fall precautions head ct ordered R shoulder, R arm, B/L hip and pelvic xray, R tib/fib xray ordered start physical therapy Code(s): W19.XXXA - UNSPECIFIED FALL, INITIAL ENCOUNTER (6) Weakness of right lower extremity Assessment/Plan: neurology consulted and following. mri or thoracic/lumbar spine ordered to further evaluate. maintain fall precautions. Code(s): R29.898 - OTH SYMPTOMS AND SIGNS INVOLVING THE MUSCULOSKELETAL SYSTEM (7) Elevated liver enzymes Assessment/Plan: elevated ast/alt, stop librium and start ativan detox protocol monitor ast/alt daily ultrasond 01/27/2019: hepatomegaly, fatty infiltration of the liver. Code(s): R74.8 - ABNORMAL LEVELS OF OTHER SERUM ENZYMES (8) Prophylactic measure Assessment/Plan: fen fall precautions monitor electrolytes regular diet full code Code(s): Z29.9 - ENCOUNTER FOR PROPHYLACTIC MEASURES, UNSPECIFIED Visit type - Emergency Visit Emergency Visit: Yes ED Registration Date: 01/25/19 Care time: The patient presented to the Emergency Department on the above date and was hospitalized for further evaluation of their emergent condition. - New Patient This patient is new to me today: Yes Date on this admission: 01/27/19 - Critical Care Critical Care patient: No - Discharge Referral Referred to [facility] Med P.C.: No CIWA Score - CIWA Score Nausea/Vomitin-No Nausea/No Vomiting Muscle Tremors: None Anxiety: 4-Mod. Anxious/Guarded Agitation: 4-Moderately Restless Paroxysmal Sweats: No Perspiration Orientation: 0-Oriented Tacttile Disturbances: 0-None Auditory Disturbances: 0-None Visual Disturbances: 0-None Headache: 0-None Present CIWA-Ar Total Score: 8
[2019-01-27] MEDS: GABAPENTIN 300 MG CAPSULE (FP) PO SCH ×2 (13:34→23:25)
[2019-01-27 14:00] LABS: HEMATOCRIT 39.4 % (35.4-49); HEMOGLOBIN 13.3 GM/dL (11.7-16.9); MCHC 33.8 g/dl (32.0-35.9); MEAN PLT VOLUME 8.3 fl (7.5-11.1); PLATELET COUNT 123 K/MM3 (134-434); RBC 3.18 M/mm3 (4.00-5.60); RDW 14.9 % (11.9-15.9); WHITE BLOOD COUNT 7.4 K/mm3 (4.0-10.0)
[2019-01-27 14:03] LABS: MCH 41.9 pg (25.7-33.7)
[2019-01-27 14:25] LABS: ALBUMIN 3.7 g/dl (3.4-5.0); BILIRUBIN,TOTAL 1.5 mg/dL (0.2-1); BLOOD UREA NITROGEN 9.3 mg/dL (7-18); CALCIUM 9.6 mg/dL (8.5-10.1); CREATININE 0.6 mg/dL (0.55-1.3); TOT PROT 7.7 g/dl (6.4-8.2)
[2019-01-27] MEDS ORDERED: LORazepam 2 MG/ML SDV VIAL IVPUSH PRN (14:30)
[2019-01-27] MEDS ORDERED: LORazepam 1 MG TABLET PO PRN (16:00)
[2019-01-27] MEDS: LORazepam 1 MG TABLET PO SCH ×2 (17:24→23:30)
[2019-01-27] MEDS: NABUMETONE 500 MG TABLET PO SCH (23:26)
[2019-01-28] MEDS: KETOROLAC TROMETHAMINE 30 MG/1 ML VIAL IM PRN (01:15)
[2019-01-28] MEDS: GABAPENTIN 300 MG CAPSULE (FP) PO SCH ×3 (06:32→21:41)
[2019-01-28] MEDS: LORazepam 1 MG TABLET PO SCH ×2 (06:33→10:59)
[2019-01-28] MEDS: oxyCODONE HCL 5 MG TABLET PO PRN ×3 (06:40→21:03)
--- NOTE | 2019-01-28 10:13 | PN ---
Progress Note (short form) - Note Progress Note: 34 year old male history fo L 5-S1 radciuloapthy, right hip arthritis, alcohol abuse, seizure, fatty liver and poly substance abuse. Patient had two epi in past and saw dr roman in past . He says he had mri of L spine and recently has been having difficulty ambulating. During interview he is very abusive and using f words many times and he has pain all over the body, he was not cooperative and insisted on looking at chart rather than cooperate with history or exam. He has been drinking whisky everyday. He also complain of urgency of urination and defecttion. Paitent is feeling better on medication and moving out of previous room. He is waiting for pain managmeent and mri of Spine. NEUROLOGICAL EXAMINATION Alert oriented x 3, neck is supple febrile eomi, pupils reactive, no face asymmetry upper extremity 5/5 lower extremity there is hip flexion weakness grade 4, and hip extension, and knee flexion and extension is grade 5 bilaterally there is slr is positive on right side, right leg is weaker than left there is dorsiflexion of right ankle 4/5 reflex are generalized diminished there is hyperasthesia in lower extremity upto both inguinal area dimnished sensation on upper extremity Assessment/Plan 1. Acute on chronic low back pain with worsening of weakness , more so on right leg than left. Patient is quite abusive and not cooperative . 2. Peripheral neuropathy 3. alcohol abuse Plan: mri of t and L spine - PT - Pain management pending - continue gabapnetin 600 mg po tid and Nabumetone 500 mg po bid - b12,foalte tsh - emg for lower extremity pending - psych consult aprepciated Thanking you so much Ezio Souza MD
--- NOTE | 2019-01-28 10:31 | PN ---
Progress Note, Physician Chief Complaint: denies any abdominal pain, no nausea or vomiting, no black tarry stools for mri today of thoracic/lumbar spine as patient is unable to ambulate. s/p fall yesterday History of Present Illness: Patient is a 34 year old male with a significant past medical history of L5-S1 herniated disc with s1 nerve impairment, R hip arthritis, neuropathy, R knee echondroma, seizures, fatty liver, ETOH abuse, polysubstance abuse. Patient was sent by PCP to ER for alcohol detox and difficulty ambulating due to lower extremity weakness and pain. Patient reports that he has been suffering from chronic pain to lower back, right hip, and right lower extremity. Patient states he has been drinking more than 1 L of whiskey or vodka daily for 22 years. - Current Medication List Current Medications: Active Medications Folic Acid (Folic Acid -) 1 mg PO DAILY [facility] Last Admin: 01/27/19 09:27 Dose: 1 mg Gabapentin (Neurontin -) 600 mg PO TID [facility] Last Admin: 01/28/19 06:32 Dose: Not Given Ketorolac Tromethamine (Toradol Injection -) 30 mg IM Q12H PRN PRN Reason: PAIN SCALE 7-10 Stop: 01/29/19 16:45 Last Admin: 01/28/19 01:15 Dose: 30 mg Lorazepam (Ativan -) 0.5 mg PO Q6H [facility] Stop: 01/29/19 11:01 Lorazepam (Ativan -) 0.5 mg PO Q4H PRN PRN Reason: Symptoms of Withdrawal Stop: 01/30/19 00:00 Lorazepam (Ativan -) 0.5 mg PO ONCE ONE Stop: 01/29/19 17:01 Lorazepam (Ativan -) 1 mg PO 1700,2300,0500,1100 [facility] Stop: 01/28/19 11:01 Last Admin: 01/28/19 06:33 Dose: 1 mg Lorazepam (Ativan -) 1 mg PO Q4H PRN PRN Reason: Symptoms of Withdrawal Stop: 01/29/19 00:00 Multivitamins/Minerals/Vitamin C (Tab-A-Vit -) 1 tab PO DAILY [facility] Last Admin: 01/27/19 09:27 Dose: 1 tab Nabumetone (Relafen -) 500 mg PO BID [facility] Last Admin: 01/27/19 23:26 Dose: Not Given Ondansetron HCl (Zofran Injection) 4 mg IVPUSH Q8H PRN PRN Reason: NAUSEA Last Admin: 01/26/19 10:47 Dose: 4 mg Oxycodone HCl (Roxicodone -) 10 mg PO Q6H PRN PRN Reason: PAIN LEVEL 6-10 Last Admin: 01/28/19 06:40 Dose: 10 mg Pantoprazole Sodium (Protonix -) 40 mg PO DAILY [facility] Last Admin: 01/27/19 09:26 Dose: 40 mg Thiamine HCl (Vitamin B1 -) 100 mg PO DAILY [facility] Last Admin: 01/27/19 09:27 Dose: 100 mg - Objective Vital Signs: Vital Signs Temperature 98.2 F 01/28/19 10:00 Pulse Rate 84 01/28/19 10:00 Respiratory Rate 18 01/28/19 10:00 Blood Pressure 127/78 01/28/19 10:00 O2 Sat by Pulse Oximetry (%) 98 01/27/19 21:00 Constitutional: Yes: Well Nourished, No Distress, Calm Eyes: Yes: Conjunctiva Clear HENT: Yes: Atraumatic Neck: Yes: Supple Cardiovascular: Yes: Regular Rate and Rhythm Respiratory: Yes: WNL Gastrointestinal: Yes: Abdomen, Obese ...Rectal Exam: Yes: WNL Genitourinary: Yes: WNL Breast(s): Yes: WNL Musculoskeletal: Yes: WNL Extremities: Yes: WNL Peripheral Pulses WNL: Yes Integumentary: Yes: WNL Neurological: Yes: Alert, Oriented Problem List - Problems (1) ETOH abuse Assessment/Plan: low CIWA score since starting detox changed librium to ativan detox protocol due to elevated ast/alt addiction medicine consulted monitor for any signs of withdrawal. Code(s): F10.10 - ALCOHOL ABUSE, UNCOMPLICATED (2) Abdominal pain Assessment/Plan: denies abdominal pain, no further nausea or vomiting. no black tarry stools. no coffee ground emesis. will trial regular diet monitor Code(s): R10.9 - UNSPECIFIED ABDOMINAL PAIN (3) Chest pain Assessment/Plan: negative troponins, chest pain resolved. Code(s): R07.9 - CHEST PAIN, UNSPECIFIED (4) Chronic pain Assessment/Plan: pain management consulted by previous provider. on neurontin 600mg tid, nabutemone 50 bid Code(s): G89.29 - OTHER CHRONIC PAIN Qualifiers: Chronic pain type: other chronic pain Qualified Code(s): G89.29 - Other chronic pain (5) Fall Assessment/Plan: patient had a fall on 01/27 in his room while attempting to ambulate maintain fall precautions head ct negative R shoulder, R arm, B/L hip and pelvic xray, R tib/fib xray without acute fracture. for mri of spine 2/2 to frequent falls start physical therapy Code(s): W19.XXXA - UNSPECIFIED FALL, INITIAL ENCOUNTER (6) Weakness of right lower extremity Assessment/Plan: neurology consulted and following. mri or thoracic/lumbar spine ordered to further evaluate. maintain fall precautions. Code(s): R29.898 - OT SYMPTOMS AND SIGNS INVOLVING THE MUSCULOSKELETAL SYSTEM (7) Elevated liver enzymes Assessment/Plan: elevated ast/alt, stop librium and start ativan detox protocol monitor ast/alt daily ultrasond 01/27/2019: hepatomegaly, fatty infiltration of the liver. hepatitis panel ordered and pending Code(s): R74.8 - ABNORMAL LEVELS OF OTHER SERUM ENZYMES (8) Prophylactic measure Assessment/Plan: fen fall precautions monitor electrolytes regular diet full code Code(s): Z29.9 - ENCOUNTER FOR PROPHYLACTIC MEASURES, UNSPECIFIED Impression/Plan Impression/Plan: patient can be discharged to [facility] to continue detox once he is cleared by neurology. mri pending Visit type - Emergency Visit Emergency Visit: Yes ED Registration Date: 01/25/19 Care time: The patient presented to the Emergency Department on the above date and was hospitalized for further evaluation of their emergent condition. - New Patient This patient is new to me today: No - Critical Care Critical Care patient: No - Discharge Referral Referred to [facility] Med P.C.: No CIWA Score Nausea/Vomitin-No Nausea/No Vomiting Muscle Tremors: None Anxiety: 0-No Anxiety, at Ease Agitation: 0-Normal Activity Paroxysmal Sweats: No Perspiration Orientation: 0-Oriented Tacttile Disturbances: 0-None Auditory Disturbances: 0-None Visual Disturbances: 0-None Headache: 0-None Present CIWA-Ar Total Score: 0 - Admission Criteria [facility] Guidelines: Admission for Medically Managed Detox: Requires at least one of the followin. CIWA greater than 12 2. Seizures within the past 24 hours 3. Delirium tremens within the past 24 hours 4. Hallucinations within the past 24 hours 5. Acute intervention needed for co occurring medical disorder 6. Acute intervention needed for co occurring psychiatric disorder 7. Severe withdrawal that cannot be handled at a lower level of care (continued vomiting, continued diarrhea, abnormal vital signs) requiring intravenous medication and/or fluids 8.
[2019-01-28 10:34] LABS: BASO % 0.3 % (0-2.0); EOS % 4.1 % (0-4.5); HEMATOCRIT 40.7 % (35.4-49); HEMOGLOBIN 13.7 GM/dL (11.7-16.9); LYMPH % 18.1 % (8-40); MCHC 33.7 g/dl (32.0-35.9); MEAN CELL VOLUME 123.8 fl (80-96); MEAN PLT VOLUME 8.6 fl (7.5-11.1); MONO % 6.2 % (3.8-10.2); NEUT % 71.3 % (42.8-82.8); PLATELET COUNT 139 K/MM3 (134-434); RBC 3.29 M/mm3 (4.00-5.60); RDW 15.2 % (11.9-15.9)
[2019-01-28] MEDS ORDERED: LORazepam 1 MG TABLET PO ONE ×2 (10:37→19:15)
[2019-01-28 10:55] LABS: ALBUMIN 3.7 g/dl (3.4-5.0); BILIRUBIN,TOTAL 1.3 mg/dL (0.2-1); BLOOD UREA NITROGEN 11.5 mg/dL (7-18); CALCIUM 9.9 mg/dL (8.5-10.1); CREATININE 0.5 mg/dL (0.55-1.3); MAGNESIUM 1.7 mg/dL (1.8-2.4); POTASSIUM 3.9 mmol/L (3.5-5.1); TOT PROT 7.6 g/dl (6.4-8.2)
[2019-01-28] MEDS: MULTIVITAMINS (DAILY MVI) TABLET (FP) PO SCH (10:59)
[2019-01-28] MEDS: THIAMINE HCL 100 MG TABLET (FP) PO SCH (10:59)
[2019-01-28] MEDS: FOLIC ACID 1 MG TABLET (FP) PO SCH (10:59)
[2019-01-28] MEDS: PANTOPRAZOLE 40 MG TABLET (FP) PO SCH (10:59)
[2019-01-28 11:04] LABS: MCH 41.7 pg (25.7-33.7)
[2019-01-28] MEDS ORDERED: PT OWN MED DRAWER 7, Y5N ONE ×3 (11:06→20:39)
[2019-01-28] MEDS ORDERED: MAGNESIUM OXIDE 400 MG TABLET (FP) PO ONE ×2 (11:16→13:45)
[2019-01-28] MEDS: NABUMETONE 500 MG TABLET PO SCH ×2 (11:22→21:41)
[2019-01-28] MEDS: THIAMINE HCL 200 MG/2 ML VIAL IVPB SCH ×3 (14:33→23:00)
--- NOTE | 2019-01-28 17:06 | CONSULT ---
Consult Consult Specialty:: PM&R Dr Palm for Dr Brand - History of Present Illness Chief Complaint: BLE weakness and paresthesias History of Present Illness: This is a 34 year old man with a medical history of seizures, EtOH abuse, polysubstance abuse, fatty liver, R knee echondroma, R hip arthritis, L5-S1 lumbar HNP with S1 impingement, neuropathy, who presented to the ED 01/25/19 with ongoing BLE weakness and neuropathic pain. He had ANUSHA x2 earlier this year , which minimally helped the weakness in the R thigh x2 weeks then worse off back to baseline. He was admitted for further work-up. Neurology consult recommended TLS MRI as well as EMG. Physiatry was requested to perform EMG; he reports EMG earlier this year showed neuropathy. 01/27/19 he sustained a fall out of bed; R shoulder, elbow, forearm, and tib/ fib XR were normal, while pelvic/ B hip XR showed possible early R hip AVN. - Past Medical History Musculoskeletal: Yes: Chronic low back pain - Alcohol/Substance Use Hx Alcohol Use: Yes - Smoking History Smoking history: Former smoker Have you smoked in the past 12 months: Yes Aproximately how many cigarettes per day: 8 If you are a former smoker, when did you quit?: last week - Social History Usual Living Arrangement: Alone ADL: Independent History of Recent Travel: No Home Medications - Allergies Allergies/Adverse Reactions: Allergies Allergy/AdvReac Type Severity Reaction Status Date / Time No Known Allergies Allergy Verified 01/25/19 11:42 - Home Medications Home Medications: Ambulatory Orders Pantoprazole Sodium [Protonix] 40 mg PO DAILY 10/25/18 Tramadol HCl 50 mg PO PRN PRN 01/25/19 Review of Systems Findings/Remarks: Denies fevers, chills, changes in vision/ hearing/ mood (although reports being grumpy because I woke him up), CP, SOB, abdominal pain. Notes ubowel/ bladder urgency, and paresthesias BUE to the elbows and entire BLE into the torso. Physical Exam Vital Signs: Vital Signs Temperature 99.1 F 01/28/19 15:13 Pulse Rate 95 H 01/28/19 15:13 Respiratory Rate 18 01/28/19 15:13 Blood Pressure 125/88 01/28/19 15:13 O2 Sat by Pulse Oximetry (%) 98 01/27/19 21:00 Musculoskeletal: Yes: Other (General: calm young M lying in bed NAD N/ M: reduced R hip ROM 2/2 pain, 3/5 R HF then 4/5 R KE and 4-/5 R DF, 4/5 LLE; Pinprick abnormal BLE but light touch painful Extremities: decreased muscle mass B feet with trace edema, no focal B calf tenderness) Labs: CBC, BMP 01/28/19 09:55 01/28/19 09:55 Imaging - Results X-ray: Report Reviewed (as per HPI) Assessment/Plan Electrodiagnostics were performed, please see scanned images (saved under ) for details. There is electrophysiological evidence of a length- dependent axonal sensorimotor peripheral neuropathy without significant demyelination. 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 5) hx seizures 6) hx EtOH abuse, polysubstance abuse 7) Fatty liver 8) R knee echondroma 9) L5-S1 lumbar HNP with S1 impingement 10) Overweight 11) No documented flu shot/ pneumovax Recommendations: 1) Pending MRI TLS spine 2) PT for R hip ROM and BLE stretching strengthening ROM and functional mobility 3) Falls, safety precautions 4) Seizure precautions 5) DVT ppx: off AC due to falls 6) Bowel regimen prn 7) Skin protection 8) Nutrition consult for overweight 9) Continue plan per Pain Management/ Neurology/ primary team 10) Discharge planning: depends on pain control and progress with therapy once medically stable Thank you for this referral.
[2019-01-28] MEDS: LORazepam 0.5 MG TABLET PO SCH ×2 (17:30→23:10)
[2019-01-28 22:07] LABS: HEP B CORE AB, TOT Negative (Negative)
[2019-01-29] MEDS ORDERED: LORazepam 0.5 MG TABLET PO PRN
[2019-01-29] MEDS: GABAPENTIN 300 MG CAPSULE (FP) PO SCH ×3 (05:59→22:02)
[2019-01-29] MEDS: LORazepam 0.5 MG TABLET PO SCH ×2 (06:29→10:48)
[2019-01-29] MEDS: THIAMINE HCL 200 MG/2 ML VIAL IVPB SCH (07:45)
--- NOTE | 2019-01-29 08:01 | PN ---
Progress Note, Physician Chief Complaint: pain and gait instability History of Present Illness: Patient is a 34 year old male with a significant past medical history of L5-S1 herniated disc with s1 nerve impairment, R hip arthritis, neuropathy, R knee echondroma, seizures, fatty liver, ETOH abuse, polysubstance abuse. Patient was sent by PCP to ER for alcohol detox and difficulty ambulating due to lower extremity weakness and pain. Patient reports that he has been suffering from chronic pain to lower back, right hip, and right lower extremity. Patient states he has been drinking more than 1 L of whiskey or vodka daily for 22 years. - Current Medication List Current Medications: Active Medications Folic Acid (Folic Acid -) 1 mg PO DAILY [facility] Last Admin: 01/28/19 10:59 Dose: 1 mg Gabapentin (Neurontin -) 600 mg PO TID [facility] Last Admin: 01/29/19 05:59 Dose: Not Given Ketorolac Tromethamine (Toradol Injection -) 30 mg IM Q12H PRN PRN Reason: PAIN SCALE 7-10 Stop: 01/29/19 16:45 Last Admin: 01/28/19 01:15 Dose: 30 mg Lorazepam (Ativan -) 0.5 mg PO Q6H [facility] Stop: 01/29/19 11:01 Last Admin: 01/29/19 06:29 Dose: 0.5 mg Lorazepam (Ativan -) 0.5 mg PO Q4H PRN PRN Reason: Symptoms of Withdrawal Stop: 01/30/19 00:00 Lorazepam (Ativan -) 0.5 mg PO ONCE ONE Stop: 01/29/19 17:01 Multivitamins/Minerals/Vitamin C (Tab-A-Vit -) 1 tab PO DAILY [facility] Last Admin: 01/28/19 10:59 Dose: 1 tab Nabumetone (Relafen -) 500 mg PO BID [facility] Last Admin: 01/28/19 21:41 Dose: Not Given Ondansetron HCl (Zofran Injection) 4 mg IVPUSH Q8H PRN PRN Reason: NAUSEA Last Admin: 01/26/19 10:47 Dose: 4 mg Oxycodone HCl (Roxicodone -) 10 mg PO Q6H PRN PRN Reason: PAIN LEVEL 6-10 Last Admin: 01/28/19 21:03 Dose: 10 mg Pantoprazole Sodium (Protonix -) 40 mg PO DAILY [facility] Last Admin: 01/28/19 10:59 Dose: 40 mg Thiamine HCl (Vitamin B1 -) 100 mg PO BID [facility] - Objective Vital Signs: Vital Signs Temperature 98.1 F 01/28/19 22:00 Pulse Rate 86 01/28/19 22:00 Respiratory Rate 18 01/28/19 22:00 Blood Pressure 116/68 01/28/19 22:00 O2 Sat by Pulse Oximetry (%) 97 01/28/19 21:00 Constitutional: Yes: Well Nourished, Anxious, Moderate Distress (secondary to pain) Eyes: Yes: WNL, Conjunctiva Clear, EOM Intact HENT: Yes: WNL, Atraumatic, Normocephalic Neck: Yes: WNL, Supple, Trachea Midline Cardiovascular: Yes: WNL, Regular Rate and Rhythm Respiratory: Yes: WNL, Regular, CTA Bilaterally Gastrointestinal: Yes: WNL, Normal Bowel Sounds, Soft ...Rectal Exam: Yes: Deferred Genitourinary: Yes: WNL Breast(s): Yes: WNL Musculoskeletal: Yes: Back Pain, Muscle Pain, Muscle Weakness Extremities: Yes: WNL Edema: No Peripheral Pulses WNL: Yes Integumentary: Yes: Tattoos Neurological: Yes: Alert, Oriented, Unsteady Gait, Weakness ...Motor Strength: LLE, RLE (generalized weakness) Psychiatric: Yes: WNL, Alert, Oriented Labs: CBC, BMP 01/28/19 09:55 01/28/19 09:55 - ....Imaging MRI: Report Reviewed (T spine IMPRESSION: Multilevel minimal and mild disc bulge without cord or nerve root impingement. Linear T2 hyperintense signal within the cervical cord at the C6 level that may represent a tiny syrinx. Correlation with MRI of the cervical spine is recommended. Hepatomegaly. Please correlate with ultrasound to further evaluate the liver size. L spine: IMPRESSION. L4-L5. Mild posterior annular bulge. Facet joint arthropathy. Trace of fluid in the facet joints. Normal right neural foramen. Left far lateral disc protrusion possibly associated with para discal osteophyte compressing the left L4 dorsal root ganglion. T2 hyperintensity is seen in the posterior annulus - circumferential fissure. Clinically correlate with radiculopathy in distribution of the left L4 nerve. L5-S1. Midline extruded disc with mild caudal extension of the disc material in relation to L5- S1 disc space. The disc effaces the anterior epidural fat, mildly deforming the ventral aspect of the thecal sac in close proximity to S1 existing nerves from the thecal sac.. The greatest posterior extension of the disc approximately 7 mm. Normal neural foramina. Mild facet joint arthropathy) Other: Report Reviewed (emg showed there is peripheral neuropathy) Problem List - Problems (1) Polysubstance (excluding opioids) dependence, daily use Assessment/Plan: addiction medicine requested detox with ativan-no librium given elevated LFTs no signs of DTs c/w thiamine, folate, MVI patient not agreeable for substance abuse treatment appreciate psychiatry consultation, will re-eval after detox is complete Code(s): F19.20 - OTHER PSYCHOACTIVE SUBSTANCE DEPENDENCE, UNCOMPLICATED (2) Chronic pain Assessment/Plan: chronic pain consultation requested will discuss possibilty of CRPS/RSD given long standing multi-modal pain management treatment with minimal relief will increase oxycodone to 15mg q 4H continue with ETOH detox apply lidoderm patch to both knees c/w gabapentin and nabumentone Code(s): G89.29 - OTHER CHRONIC PAIN Qualifiers: Chronic pain type: other chronic pain Qualified Code(s): G89.29 - Other chronic pain (3) ETOH abuse Code(s): F10.10 - ALCOHOL ABUSE, UNCOMPLICATED (4) Elevated liver enzymes Assessment/Plan: avoid hepatotoxic agents monitor LFTs ETOH cessation Code(s): R74.8 - ABNORMAL LEVELS OF OTHER SERUM ENZYMES (5) Fall Assessment/Plan: gait remain unsteady r/t chronic pain PT following pt fall precautions appreciate neurology consultation EMG pending will consult Dr Vargas from neurosurgery for possible repeat of ANUSHA Code(s): W19.XXXA - UNSPECIFIED FALL, INITIAL ENCOUNTER (6) Prophylactic measure Assessment/Plan: FEN IVF 1L bolus to be given-oral [place] dry and pt stated inability to take sufficient PO fluids monitor electrolytes, miantin K>4.0, Mg >2.0 regular diet c/w protonix DVT ambulatory Dispo maintain as in patient full code discharge planning, discussed option of admission to [facility] Code(s): Z29.9 - ENCOUNTER FOR PROPHYLACTIC MEASURES, UNSPECIFIED (7) Weakness of right lower extremity Assessment/Plan: PT following pt EMG pending Dr Vargas to see patient pain management Code(s): R29.898 - [facility] SYMPTOMS AND SIGNS INVOLVING THE MUSCULOSKELETAL SYSTEM Visit type - Emergency Visit Emergency Visit: Yes ED Registration Date: 01/25/19 Care time: The patient presented to the Emergency Department on the above date and was hospitalized for further evaluation of their emergent condition. - New Patient This patient is new to me today: Yes Date on this admission: 01/29/19 - Critical Care Critical Care patient: No - Discharge Referral Referred to [facility] Med P.C.: No
--- NOTE | 2019-01-29 08:47 | PN ---
Progress Note (short form) - Note Progress Note: 34 year old male history fo L 5-S1 radciuloapthy, right hip arthritis, alcohol abuse, seizure, fatty liver and poly substance abuse. Patient had two epi in past and saw dr roman in past . He says he had mri of L spine and recently has been having difficulty ambulating. During interview he is very abusive and using f words many times and he has pain all over the body, he was not cooperative and insisted on looking at chart rather than cooperate with history or exam. He has been drinking whisky everyday. He also complain of urgency of urination and defecttion. Patient has been feeling better and walking around. His mri of L and T spine done and there is disc protrusion. patient had emg done and showed there is peripheral neuropathy NEUROLOGICAL EXAMINATION Alert oriented x 3, neck is supple febrile eomi, pupils reactive, no face asymmetry upper extremity 5/5 lower extremity there is hip flexion weakness grade 4, and hip extension, and knee flexion and extension is grade 5 bilaterally there is slr is positive on right side, right leg is weaker than left there is dorsiflexion of right ankle 4/5 reflex are generalized diminished there is hyperasthesia in lower extremity upto both inguinal area dimnished sensation on upper extremity in hands only MRI L spine showed disc extrusion T spine is pending emg shoed there is peripheral neuropathy Assessment/Plan 1. Acute on chronic low back pain with worsening of weakness , more so on right leg than left. He is feeling better on ativan and opioids 2.. alcohol abuse Plan: - continu PT - Pain management pending - continue gabapnetin 600 mg po tid and Nabumetone 500 mg po bid - consult dr roman for neurosurgery - will continue to follow up Thanking you so much Ezio Souza MD
[2019-01-29] MEDS ORDERED: SODIUM CHLORIDE 1,000 ML IV STA (09:32)
[2019-01-29] MEDS ORDERED: oxyCODONE HCL 10 MG SUSTAINED ACTING TABLET PO SCH (10:00)
[2019-01-29 10:03] LABS: BASO % 0.8 % (0-2.0); EOS % 4.2 % (0-4.5); HEMATOCRIT 40.8 % (35.4-49); LYMPH % 18.2 % (8-40); MCHC 34.3 g/dl (32.0-35.9); MEAN CELL VOLUME 121.8 fl (80-96); MEAN PLT VOLUME 8.6 fl (7.5-11.1); MONO % 6.8 % (3.8-10.2); PLATELET COUNT 194 K/MM3 (134-434); RBC 3.35 M/mm3 (4.00-5.60); RDW 15.8 % (11.9-15.9); WHITE BLOOD COUNT 5.6 K/mm3 (4.0-10.0)
[2019-01-29 10:04] LABS: MCH 41.8 pg (25.7-33.7)
[2019-01-29 10:11] LABS: ALBUMIN 3.8 g/dl (3.4-5.0); BILIRUBIN,TOTAL 1.3 mg/dL (0.2-1); BLOOD UREA NITROGEN 8.5 mg/dL (7-18); CALCIUM 9.6 mg/dL (8.5-10.1); CREATININE 0.5 mg/dL (0.55-1.3); MAGNESIUM 1.7 mg/dL (1.8-2.4); POTASSIUM 4.4 mmol/L (3.5-5.1); TOT PROT 7.7 g/dl (6.4-8.2)
[2019-01-29] MEDS ORDERED: PT OWN MED DRAWER 7, Y5N ONE ×5 (10:40→21:51)
[2019-01-29] MEDS: LIDOCAINE 5% TOPICAL PATCH TP SCH ×2 (10:43)
[2019-01-29] MEDS: PANTOPRAZOLE 40 MG TABLET (FP) PO SCH (10:46)
[2019-01-29] MEDS: MULTIVITAMINS (DAILY MVI) TABLET (FP) PO SCH (10:46)
[2019-01-29] MEDS: FOLIC ACID 1 MG TABLET (FP) PO SCH (10:46)
[2019-01-29] MEDS: NABUMETONE 500 MG TABLET PO SCH ×2 (10:47→22:11)
[2019-01-29] MEDS: THIAMINE HCL 100 MG TABLET (FP) PO SCH ×2 (10:48→22:09)
[2019-01-29] MEDS: oxyCODONE HCL 5 MG TABLET PO PRN ×3 (10:58→23:40)
[2019-01-29] MEDS ORDERED: MAGNESIUM OXIDE 400 MG TABLET (FP) PO ONE (11:14)
[2019-01-29 13:55] LABS: ANISOCYTOSIS 2+; MACROCYTOSIS 2+; PLATELET ESTIMATE NORMAL
[2019-01-29] MEDS: LORazepam 1 MG TABLET PO PRN (14:04)
[2019-01-29] MEDS: KETOROLAC TROMETHAMINE 30 MG/1 ML VIAL IM PRN (14:13)
--- NOTE | 2019-01-29 15:49 | CONS ---
DATE OF CONSULTATION: DATE OF DICTATION: 01/29/2019 GASTROINTESTINAL CONSULTATION HISTORY OF PRESENT ILLNESS: The patient is a 34-year-old man with a past medical history of herniated disk L5-S1 right hip arthritis, neuropathy, seizures, fatty liver disease, alcohol abuse, polysubstance abuse who is known to me from the outpatient practice at which time he presented to me with complaints of nausea, vomiting, and questionably vomiting coffee ground emesis. Early in the year he had an upper endoscopy which revealed erosive gastritis. Pathology was without any bacteria . He was now sent to the hospital by his PCP for alcohol detox and also for his weakness and difficulty ambulating secondary to his nerve impingement. During the course, he said he has not been able to eat very much and had some episodes of nausea and vomiting with abdominal discomfort. These symptoms have resolved at this time. He states occasionally he gets mid abdominal pain. He also has not moved his bowels over the past couple of days. In the past he was drinking over 1 liter of vodka or whiskey for approximately 22 years. He currently denies any hematemesis, melena, hematochezia, or weight loss. PAST MEDICAL AND SURGICAL HISTORY: As listed in the HPI. ALLERGIES: No known drug allergies. SOCIAL HISTORY: Smoked in the past. Quit about 2 weeks ago. Alcohol abuse yes, currently in detox. FAMILY HISTORY: No history of GI or gynecological malignancy. HOME MEDICATIONS: Reviewed. Pantoprazole and tramadol. REVIEW OF SYSTEMS: As per the HPI. PHYSICAL EXAMINATION: VITAL SIGNS: Temperature 98, pulse 109, blood pressure 145/93, respiratory rate 18, oxygen saturation 97% on room air. GENERAL: In no acute distress. HEENT: Anicteric sclerae. CARDIOVASCULAR: S1, S2, regular rate and rhythm. LUNGS: Bilaterally clear to auscultation. ABDOMEN: Soft, nontender. EXTREMITIES: No edema. LABORATORY: White blood cell count 5.6, hemoglobin and hematocrit 14/40, MCV 121, platelet count 194. Sodium 138, potassium 4.4, BUN/creatinine 8.5/0.5, total bilirubin 1.3. AST 161, ALT 123, alkaline phosphatase 120. Toxicology screen was positive for opiates, benzodiazepines and marijuana, and alcohol . Hepatitis panel was within normal limits on the 8th. He had no abdominal imaging during this hospitalization. IMPRESSION: Alcohol abuse, polysubstance abuse, also with gastritis secondary to his substance abuse and alcohol abuse as well as his transaminitis. RECOMMENDATION: I recommend continuing him on pantoprazole 40 mg p.o. daily, advance diet as tolerated, start Miralax for occasional constipation, avoid NSAIDs, follow up final results on his hepatitis serologies, trend LFTs daily while hospitalized. Abdominal ultrasound will be ordered. He does not meet criteria for steroid therapy in the setting of alcoholic hepatitis. Will follow. DO ALEXANDER QUINONEZ/[id number]
[2019-01-29] MEDS ORDERED: LORazepam 0.5 MG TABLET PO ONE (17:00)
[2019-01-29] MEDS: LIDOCAINE PATCH REMOVAL MC SCH ×2 (22:03→22:04)
[2019-01-30] MEDS: oxyCODONE HCL 5 MG TABLET PO PRN ×5 (03:49→22:59)
[2019-01-30] MEDS: LORazepam 1 MG TABLET PO PRN ×3 (03:49→23:02)
[2019-01-30] MEDS: GABAPENTIN 300 MG CAPSULE (FP) PO SCH ×3 (06:09→23:40)
--- NOTE | 2019-01-30 08:02 | PN ---
Progress Note, Physician Chief Complaint: pain and gait instability. Persistent generalized pain History of Present Illness: Patient is a 34 year old male with a significant past medical history of L5-S1 herniated disc with s1 nerve impairment, R hip arthritis, neuropathy, R knee echondroma, seizures, fatty liver, ETOH abuse, polysubstance abuse. Patient was sent by PCP to ER for alcohol detox and difficulty ambulating due to lower extremity weakness and pain. Patient reports that he has been suffering from chronic pain to lower back, right hip, and right lower extremity. Patient states he has been drinking more than 1 L of whiskey or vodka daily for 22 years. - Current Medication List Current Medications: Active Medications Folic Acid (Folic Acid -) 1 mg PO DAILY [facility] Last Admin: 01/29/19 10:46 Dose: 1 mg Gabapentin (Neurontin -) 600 mg PO TID [facility] Last Admin: 01/30/19 06:09 Dose: Not Given Lidocaine (Lidoderm Patch -) 1 patch TP DAILY [facility] Last Admin: 01/29/19 10:43 Dose: 1 patch Lidocaine (Lidoderm Patch -) 1 patch TP DAILY [facility] Last Admin: 01/29/19 10:43 Dose: 1 patch Lorazepam (Ativan -) 1 mg PO BID PRN PRN Reason: ANXIETY Last Admin: 01/30/19 03:49 Dose: 1 mg Miscellaneous (Lidoderm Patch Removal) 1 each [facility] DAILY@2200 [place] Last Admin: 01/29/19 22:03 Dose: 1 each Miscellaneous (Lidoderm Patch Removal) 1 each [facility] DA[facility]@2200 [place] Last Admin: 01/29/19 22:04 Dose: 1 each Multivitamins/Minerals/Vitamin C (Tab-A-Vit -) 1 tab PO DAILY [facility] Last Admin: 01/29/19 10:46 Dose: 1 tab Nabumetone (Relafen -) 500 mg PO BID [facility] Last Admin: 01/29/19 22:11 Dose: Not Given Ondansetron HCl (Zofran Injection) 4 mg IVPUSH Q8H PRN PRN Reason: NAUSEA Last Admin: 01/26/19 10:47 Dose: 4 mg Oxycodone HCl (Roxicodone -) 15 mg PO Q4H PRN PRN Reason: PAIN LEVEL 6-10 Last Admin: 01/30/19 03:49 Dose: 15 mg Pantoprazole Sodium (Protonix -) 40 mg PO DAILY [facility] Last Admin: 01/29/19 10:46 Dose: 40 mg Thiamine HCl (Vitamin B1 -) 100 mg PO BID [facility] Last Admin: 01/29/19 22:09 Dose: 100 mg - Objective Vital Signs: Vital Signs Temperature 97.7 F 01/30/19 02:00 Pulse Rate 79 01/30/19 02:00 Respiratory Rate 18 01/30/19 02:00 Blood Pressure 116/67 01/30/19 02:00 O2 Sat by Pulse Oximetry (%) 98 01/29/19 09:00 Constitutional: Yes: Well Nourished, No Distress, Calm Eyes: Yes: WNL, Conjunctiva Clear, EOM Intact HENT: Yes: WNL, Atraumatic, Normocephalic Neck: Yes: WNL, Supple, Trachea Midline Cardiovascular: Yes: WNL, Regular Rate and Rhythm Respiratory: Yes: WNL, Regular, CTA Bilaterally Gastrointestinal: Yes: WNL, Normal Bowel Sounds, Soft ...Rectal Exam: Yes: Deferred Genitourinary: Yes: WNL Breast(s): Yes: WNL Musculoskeletal: Yes: Joint Stiffness, Muscle Pain, Muscle Weakness Extremities: Yes: WNL Edema: No Peripheral Pulses WNL: Yes Integumentary: Yes: Tattoos Neurological: Yes: WNL, Alert, Oriented, Paresthesia, Tingling (to lower extremities), Unsteady Gait, Weakness ...Motor Strength: LUE, LLE, RUE, RLE (genralized weakness) Psychiatric: Yes: WNL, Alert, Oriented, Agitated (at times) Labs: CBC, BMP 01/29/19 07:10 01/29/19 09:31 - ....Imaging MRI: Pending (Cervical MRI), Report Reviewed (MRI: Report Reviewed (T spine IMPRESSION: Multilevel minimal and mild disc bulge without cord or nerve root impingement. Linear T2 hyperintense signal within the cervical cord at the C6 level that may represent a tiny syrinx. Correlation with MRI of the cervical spine is recommended. Hepatomegaly. Please correlate with ultrasound to further evaluate the liver size. L spine:IMPRESSION. L4-L5. Mild posterior annular bulge. Facet joint arthropathy. Trace of fluid in the facet joints. Normal right neural foramen. Left far lateral disc protrusion possibly associated with para discal osteophyte compressing the left L4 dorsal root ganglion. T2 hyperintensity is seen in the posterior annulus - circumferential fissure. Clinically correlate with radiculopathy in distribution of the left L4 nerve. L5-S1. Midline extruded disc with mild caudal extension of the disc material in relation to L5-S1 disc space. The disc effaces the anterior epidural fat, mildly deforming the ventral aspect of the thecal sac in close proximity to S1 existing nerves from the thecal sac.. The greatest posterior extension of the disc approximately 7 mm. Normal neural foramina. Mild facet joint arthropathy)) Other: Report Reviewed (emg showed there is peripheral neuropathy) Problem List - Problems (1) Polysubstance (excluding opioids) dependence, daily use Assessment/Plan: addiction medicine consult requested-Dr Liu to see detox with ativan completed no signs of DTs but periods of situational agitation c/w thiamine, folate, MVI patient not agreeable for substance abuse treatment at this time appreciate psychiatry consultation, no further follow up needed Code(s): F19.20 - OTHER PSYCHOACTIVE SUBSTANCE DEPENDENCE, UNCOMPLICATED (2) Chronic pain Assessment/Plan: chronic pain consultation requested-Dr Nany etienne see patient today will discuss possibilty of CRPS/RSD given long standing multi-modal pain management treatment with minimal relief c/w oxycodone 15mg q 4H completed ativan ETOH detox c/w apply lidoderm patch c/w gabapentin and nabumentone Code(s): G89.29 - OTHER CHRONIC PAIN Qualifiers: Chronic pain type: other chronic pain Qualified Code(s): G89.29 - Other chronic pain (3) ETOH abuse Code(s): F10.10 - ALCOHOL ABUSE, UNCOMPLICATED (4) Elevated liver enzymes Assessment/Plan: avoid hepatotoxic agents monitor LFTs ETOH cessation Code(s): R74.8 - ABNORMAL LEVELS OF OTHER SERUM ENZYMES (5) Fall Assessment/Plan: gait remain unsteady r/t chronic pain PT following pt fall precautions appreciate neurology consultation EMG shows peripheral neuropathy appreciate consultation from Dr Vargas from neurosurgery C spine MRI to r/o cervical stenosis or Chiari I as per Dr Vargas ideally avoid surgery given EtOH related conditions, which is why pt underwent EPSI's If persistent intractable sypmtoms could consider L4-5 and L5-S1 discectomies , decompression and interbody fusion with instrumentation Pros and cons of treatment approaches, risks and potential benefits discussed Code(s): W19.XXXA - UNSPECIFIED FALL, INITIAL ENCOUNTER (6) Prophylactic measure Assessment/Plan: FEN 1L NS bolus given yesterday monitor electrolytes, miantin K>4.0, Mg >2.0 regular diet c/w protonix DVT ambulatory Dispo maintain as in patient full code discharge planning, discussed option of admission to [facility] Code(s): Z29.9 - ENCOUNTER FOR PROPHYLACTIC MEASURES, UNSPECIFIED (7) Weakness of right lower extremity Assessment/Plan: c/w PT EMG with peripheral neuropathy Dr Vargas following pain management Code(s): R29.898 - OT SYMPTOMS AND SIGNS INVOLVING THE MUSCULOSKELETAL SYSTEM Visit type - Emergency Visit Emergency Visit: Yes ED Registration Date: 01/25/19 Care time: The patient presented to the Emergency Department on the above date and was hospitalized for further evaluation of their emergent condition. - New Patient This patient is new to me today: No - Critical Care Critical Care patient: No - Discharge Referral Referred to [facility] Med P.C.: No
--- NOTE | 2019-01-30 08:46 | PN ---
Progress Note (short form) - Note Progress Note: 34 year old male history fo L 5-S1 radciuloapthy, right hip arthritis, alcohol abuse, seizure, fatty liver and poly substance abuse. Patient had two epi in past and saw dr roman in past . He says he had mri of L spine and recently has been having difficulty ambulating. During interview he is very abusive and using f words many times and he has pain all over the body, he was not cooperative and insisted on looking at chart rather than cooperate with history or exam. He has been drinking whisky everyday. He also complain of urgency of urination and defecttion. Patient has been feeling better and walking around. His mri of L and T spine done and there is disc protrusion. patient had emg done and showed there is peripheral neuropathy There is possibility of small syrinx in cervical spine NEUROLOGICAL EXAMINATION Alert oriented x 3, neck is supple febrile eomi, pupils reactive, no face asymmetry upper extremity 5/5 lower extremity there is hip flexion weakness grade 4, and hip extension, and knee flexion and extension is grade 5 bilaterally there is slr is positive on right side, right leg is weaker than left there is dorsiflexion of right ankle 4/5 reflex are generalized diminished there is hyperasthesia in lower extremity upto both inguinal area dimnished sensation on upper extremity distally in hand only exam remain unchanged he is able to walk MRI L spine showed disc extrusion T spine showed there is mild ? syrox emg shoed there is peripheral neuropathy b12,folate tsh is pending Assessment/Plan 1. Acute on chronic low back pain with worsening of weakness , more so on right leg than left. He is feeling better on ativan and opioids 2.. alcohol abuse Plan: - continu PT - Pain management pending , spoke to primary - continue gabapnetin 600 mg po tid and Nabumetone 500 mg po bid - consult dr roman for neurosurgery , pending - mri of c spine for ? syrinx Thanking you so much Ezio Souza MD
[2019-01-30] MEDS: LIDOCAINE 5% TOPICAL PATCH TP SCH ×3 (10:50→11:34)
[2019-01-30 10:56] LABS: BASO % 0.3 % (0-2.0); EOS % 4.5 % (0-4.5); HEMATOCRIT 35.5 % (35.4-49); LYMPH % 18.4 % (8-40); MCHC 33.8 g/dl (32.0-35.9); MEAN PLT VOLUME 7.9 fl (7.5-11.1); MONO % 11.2 % (3.8-10.2); NEUT % 65.6 % (42.8-82.8); PLATELET COUNT 165 K/MM3 (134-434); RBC 2.91 M/mm3 (4.00-5.60); RDW 15.4 % (11.9-15.9); WHITE BLOOD COUNT 4.3 K/mm3 (4.0-10.0)
[2019-01-30 11:11] LABS: MCH 41.2 pg (25.7-33.7)
[2019-01-30 11:20] LABS: ALBUMIN 3.2 g/dl (3.4-5.0); BILIRUBIN,TOTAL 0.9 mg/dL (0.2-1); BLOOD UREA NITROGEN 9.7 mg/dL (7-18); CALCIUM 9.1 mg/dL (8.5-10.1); CREATININE 0.5 mg/dL (0.55-1.3); MAGNESIUM 1.7 mg/dL (1.8-2.4); POTASSIUM 4.1 mmol/L (3.5-5.1); TOT PROT 6.3 g/dl (6.4-8.2)
[2019-01-30] MEDS ORDERED: PT OWN MED DRAWER 7, Y5N ONE (11:26)
--- NOTE | 2019-01-30 11:33 | PN ---
Progress Note (short form) - Note Progress Note: Patient seen for Psych follow up , ?> reason. MS: alert, ambulating slowly, angry,and abusive. Demanding to smoke. DEnies any [id number] and wants to get out vof here. Patient with a history of CHronic alcoholism and anti social persnality disoreder. REC: No Psych meds. 2) No Psych follow up needed, discharge when medically stable.
[2019-01-30] MEDS: PANTOPRAZOLE 40 MG TABLET (FP) PO SCH (11:35)
[2019-01-30] MEDS: FOLIC ACID 1 MG TABLET (FP) PO SCH (11:35)
[2019-01-30] MEDS: MULTIVITAMINS (DAILY MVI) TABLET (FP) PO SCH (11:36)
[2019-01-30] MEDS: THIAMINE HCL 100 MG TABLET (FP) PO SCH ×2 (11:36→23:02)
[2019-01-30] MEDS: NABUMETONE 500 MG TABLET PO SCH ×2 (11:36→23:41)
--- NOTE | 2019-01-30 11:36 | PN ---
Progress Note (short form) - Note Progress Note: NEUROSURGERY Pt known to me L4-5 and L5-S1 herniated disc, R hip arthritis, EtOH perupheral neuropathy, R knee echondroma, Seizures, polysubstance abuse. +Difficulty ambulating due to lower extremity weakness and pain. Patient says he has been suffering from chronic pain to lower back, right hip, and right lower extremity. Denies bowel or bladder incontinence. B feet burning R > L. Underwent therapy without relief. Underwent 2 EPSI, first one helped 2 weeks, second one helped only a couple days. EMG- B LE sensori-motor neuropathy, no radiculopathy. Mild R sided neck pain with extension. Not able to tolerate Neurontin previously . PE: AF, VSS HEENT- NC/AT; Neck- supple; Cor- RRR; Lungs- CTA B; Abd- benign, + BS; Ext- no sign of DVT Platelet 165K; LFT elevated CN- intact II-XII; Motor- 5/5 except B EHL 4- and R foot inversion 4-; Sensation - decreased distal B LE vibration; DTR- hyporeflexic throughout MRI LS spine- L4-5 broad based disc protrusion with thecal sac impingement; L L4 -5 far lateral disc bulge; L5-S1 disc extrusion midline with mild stenosis; facet hypertrophy MRI T spine- mild disc bulges/DDD without canal compromise or stenosis; ? T2 linear hyperinstensity L4-5 and L5-S1 DDD/ disc protrusion/extrusion with mild thecal sac and root impingement EtOH peripheral neuropathy Hepatic dysfunction C spine MRI to r/o cervical stenosis or Chiari I Should ideally avoid surgery given EtOH related conditions, which is why pt underwent EPSI's If persistent intractable sypmtoms could consider L4-5 and L5-S1 discectomies, decompression and interbody fusion with instrumentation Pros and cons of treatment approaches, risks and potential benefits discussed
[2019-01-30] MEDS ORDERED: SODIUM CHLORIDE 1,000 ML IV STA (18:27)
--- NOTE | 2019-01-30 18:42 | PN.GI ---
GI Progress Note Subjective: Pt seen/examined at bedside, feeling better, tolerating regular diet. Denies further abdominal pain, n/v. No bm since hospitalization though feels he may move bowels today. - Objective Vital Signs: Vital Signs Temperature 97.8 F 01/30/19 10:00 Pulse Rate 81 01/30/19 10:00 Respiratory Rate 18 01/30/19 10:00 Blood Pressure 116/70 01/30/19 10:00 O2 Sat by Pulse Oximetry (%) 98 01/30/19 09:00 Constitutional: Well Nourished, No Distress, Calm Cardiovascular: Yes: WNL, Regular Rate and Rhythm Respiratory: Yes: WNL, Regular, CTA Bilaterally ...Palpate: Yes: Other (Abd soft, nt, nd) Labs: CBC, BMP 01/30/19 09:44 01/30/19 09:44 Problem List - Problems (1) Abdominal pain Assessment/Plan: 34yo male h/o etoh and polysubstance abuse, radiculopathy presenting for detox with abdominal pain and nause/vomiting. Now resolved. Tolerating po. No bm in several days though passing gas and refuses laxatives at this time. -Continue diet as tolerated -PPI daily -Ambulation as tolerated -Advised miralax daily though pt refused Code(s): R10.9 - UNSPECIFIED ABDOMINAL PAIN (2) Elevated liver enzymes Assessment/Plan: Likely secondary to alcoholic liver disease. Improvement noted today. Hepatitis panel negative. Labs not suggestive of underlying cirrhosis. -Continue to monitor LFT trend -Check coags -Await [facility] -Strict etoh abstinence -Avoid nonessential hepatotoxic medications Code(s): R74.8 - ABNORMAL LEVELS OF OTHER SERUM ENZYMES
[2019-01-30] MEDS: LIDOCAINE PATCH REMOVAL MC SCH ×2 (23:48→23:49)
[2019-01-31] MEDS: oxyCODONE HCL 5 MG TABLET PO PRN ×4 (04:35→21:58)
[2019-01-31] MEDS: GABAPENTIN 300 MG CAPSULE (FP) PO SCH (05:57)
[2019-01-31 08:13] LABS: BASO % 0.4 % (0-2.0); EOS % 4.2 % (0-4.5); HEMATOCRIT 38.9 % (35.4-49); HEMOGLOBIN 13.4 GM/dL (11.7-16.9); LYMPH % 21.2 % (8-40); MCHC 34.4 g/dl (32.0-35.9); MEAN CELL VOLUME 121.4 fl (80-96); MONO % 9.5 % (3.8-10.2); NEUT % 64.7 % (42.8-82.8); PLATELET COUNT 215 K/MM3 (134-434); RBC 3.21 M/mm3 (4.00-5.60); RDW 15.4 % (11.9-15.9)
[2019-01-31 08:24] LABS: INR 1.09 (0.83-1.09); PROTHROMBIN TIME (PATIENT) 12.9 SEC (9.7-13.0)
[2019-01-31 08:30] LABS: MCH 41.8 pg (25.7-33.7)
[2019-01-31 08:34] LABS: ALBUMIN 3.6 g/dl (3.4-5.0); BLOOD UREA NITROGEN 8.2 mg/dL (7-18); CALCIUM 9.4 mg/dL (8.5-10.1); CREATININE 0.5 mg/dL (0.55-1.3); MAGNESIUM 1.9 mg/dL (1.8-2.4); POTASSIUM 4.3 mmol/L (3.5-5.1); TOT PROT 7.3 g/dl (6.4-8.2)
[2019-01-31] MEDS ORDERED: BISACODYL 5 MG TABLET.DR (FP) PO ONE (09:48)
--- NOTE | 2019-01-31 10:24 | PN ---
Progress Note (short form) - Note Progress Note: 34 year old male history fo L 5-S1 radciuloapthy, right hip arthritis, alcohol abuse, seizure, fatty liver and poly substance abuse. Patient had two epi in past and saw dr roman in past . He says he had mri of L spine and recently has been having difficulty ambulating. During interview he is very abusive and using f words many times and he has pain all over the body, he was not cooperative and insisted on looking at chart rather than cooperate with history or exam. He has been drinking whisky everyday. He also complain of urgency of urination and defecttion. Patient has been feeling better and walking around. His mri of L and T spine done and there is disc protrusion. patient had emg done and showed there is peripheral neuropathy Patient has been seen by neurosurgery and no surgery is planned and he has mri of c spine showed possible small syrinx NEUROLOGICAL EXAMINATION Alert oriented x 3, neck is supple febrile eomi, pupils reactive, no face asymmetry upper extremity 5/5 lower extremity there is hip flexion weakness grade 4, and hip extension, and knee flexion and extension is grade 5 bilaterally there is slr is positive on right side, right leg is weaker than left there is dorsiflexion of right ankle 4/5 reflex are generalized diminished there is hyperasthesia in lower extremity upto both inguinal area dimnished sensation on upper extremity distally in hand only exam remain unchanged he is able to walk MRI L spine showed disc extrusion T spine showed there is mild ? syrinx in c spine C spine mri showed remmanat of canal vs syrinx emg shoed there is peripheral neuropathy b12,folate tsh is pending Assessment/Plan 1. Acute on chronic low back pain with worsening of weakness , more so on right leg than left. He is feeling better on ativan and opioids 2.. alcohol abuse Plan: - continu PT - Pain management pending , spoke to primary - continue gabapnetin 600 mg po tid and Nabumetone 500 mg po bid - Neurosurgery consult appreciated and no surgery is planned - mri of c spine report appreciated , Neurosurgery is following I would signed off at this time, and I would see him prn basis Thanking you so much Ezio Souza MD
[2019-01-31] MEDS: NABUMETONE 500 MG TABLET PO SCH (10:50)
[2019-01-31] MEDS: POLYETHYLENE GLYCOL 3350 119 GM BTL PO SCH (11:00)
[2019-01-31] MEDS: FOLIC ACID 1 MG TABLET (FP) PO SCH (11:00)
[2019-01-31] MEDS: LORazepam 1 MG TABLET PO PRN ×2 (11:00→22:02)
[2019-01-31] MEDS: LIDOCAINE 5% TOPICAL PATCH TP SCH ×2 (11:00)
[2019-01-31] MEDS: THIAMINE HCL 100 MG TABLET (FP) PO SCH ×2 (11:00→21:59)
[2019-01-31] MEDS: MULTIVITAMINS (DAILY MVI) TABLET (FP) PO SCH (11:00)
[2019-01-31] MEDS: PANTOPRAZOLE 40 MG TABLET (FP) PO SCH (11:00)
--- NOTE | 2019-01-31 15:53 | PN ---
Progress Note (short form) - Note Progress Note: NEUROSURGERY Walking a little better. leg feels "swollen" PE: AF, VSS HEENT- NC/AT; Neck- supple; Cor- RRR; Lungs- CTA B; Abd- benign, + BS; Ext- no sign of DVT LFT's generaly trending down CN- intact II-XII; Motor- 5/5 except B EHL 4- and R foot inversion 4-; Sensation - decreased distal B LE vibration; DTR- hyporeflexic throughout MRI LS spine- L4-5 broad based disc protrusion with thecal sac impingement; L L4 -5 far lateral disc bulge; L5-S1 disc extrusion midline with mild stenosis; facet hypertrophy MRI T spine- mild disc bulges/DDD without canal compromise or stenosis; T2 linear hyperinstensity C6 MRI C spine- no Chiari malformation; C6 hydromyelia; no canal stenosis or cord impingement L4-5 and L5-S1 DDD/ disc protrusion/extrusion with mild thecal sac and root impingement EtOH peripheral neuropathy Hepatic dysfunction Should ideally avoid surgery given EtOH related conditions, which is why pt underwent EPSI's instead previously If persistent intractable symptoms and liver function normalizes could consider L4-5 and L5-S1 discectomies, decompression and interbody fusion with instrumentation, though increased risks and poorer outcome secondary to EtOH/ substance related medical issues Pros and cons of treatment approaches, risks and potential benefits previously discussed Potential outcome and recovery course discussed Pt aware of MRI findings and implications LE doppler baseline
--- NOTE | 2019-01-31 18:10 | PN ---
Progress Note, Physician Chief Complaint: pain and gait instability. Persistent generalized pain History of Present Illness: Patient is a 34 year old male with a significant past medical history of L5-S1 herniated disc with s1 nerve impairment, R hip arthritis, neuropathy, R knee echondroma, seizures, fatty liver, ETOH abuse, polysubstance abuse. Patient was sent by PCP to ER for alcohol detox and difficulty ambulating due to lower extremity weakness and pain. Patient reports that he has been suffering from chronic pain to lower back, right hip, and right lower extremity. Patient states he has been drinking more than 1 L of whiskey or vodka daily for 22 years. - Current Medication List Current Medications: Active Medications Folic Acid (Folic Acid -) 1 mg PO DAILY [facility] Last Admin: 01/31/19 11:00 Dose: 1 mg Lidocaine (Lidoderm Patch -) 1 patch TP DAILY [facility] Last Admin: 01/31/19 11:00 Dose: 1 patch Lidocaine (Lidoderm Patch -) 1 patch TP DAILY [facility] Last Admin: 01/31/19 11:00 Dose: 1 patch Lorazepam (Ativan -) 1 mg PO BID PRN PRN Reason: ANXIETY Last Admin: 01/31/19 11:00 Dose: 1 mg Miscellaneous (Lidoderm Patch Removal) 1 each MC DAILY@2200 [facility] Last Admin: 01/30/19 23:49 Dose: Not Given Miscellaneous (Lidoderm Patch Removal) 1 each MC DAILY@2200 [facility] Last Admin: 01/30/19 23:48 Dose: Not Given Multivitamins/Minerals/Vitamin C (Tab-A-Vit -) 1 tab PO DAILY [facility] Last Admin: 01/31/19 11:00 Dose: 1 tab Nabumetone (Relafen -) 500 mg PO BID [facility] Last Admin: 01/31/19 10:50 Dose: Not Given Oxycodone HCl (Roxicodone -) 15 mg PO Q4H PRN PRN Reason: PAIN LEVEL 6-10 Last Admin: 01/31/19 14:09 Dose: 15 mg Pantoprazole Sodium (Protonix -) 40 mg PO DAILY [facility] Last Admin: 01/31/19 11:00 Dose: 40 mg Polyethylene Glycol (Miralax (For Daily Use) -) 17 gm PO DAILY [facility] Last Admin: 01/31/19 11:00 Dose: 17 grams Thiamine HCl (Vitamin B1 -) 100 mg PO BID [facility] Last Admin: 01/31/19 11:00 Dose: 100 mg - Objective Vital Signs: Vital Signs Temperature 98.1 F 01/31/19 14:00 Pulse Rate 85 01/31/19 14:00 Respiratory Rate 18 01/31/19 14:00 Blood Pressure 121/72 01/31/19 14:00 O2 Sat by Pulse Oximetry (%) 97 01/31/19 09:00 Constitutional: Yes: Well Nourished, No Distress, Calm Eyes: Yes: WNL, Conjunctiva Clear, EOM Intact HENT: Yes: WNL, Atraumatic, Normocephalic Neck: Yes: WNL, Supple, Trachea Midline Cardiovascular: Yes: WNL, Regular Rate and Rhythm Respiratory: Yes: WNL, Regular, CTA Bilaterally Gastrointestinal: Yes: WNL, Normal Bowel Sounds, Soft ...Rectal Exam: Yes: Deferred Genitourinary: Yes: WNL Breast(s): Yes: WNL Musculoskeletal: Yes: Joint Swelling (right knee swelling), Muscle Pain ( generalized pain), Muscle Weakness Extremities: Yes: WNL Edema: No Peripheral Pulses WNL: Yes Integumentary: Yes: Tattoos Neurological: Yes: WNL, Alert, Oriented ...Motor Strength: LLE, RLE (generalized weakness) Psychiatric: Yes: WNL, Alert, Agitated (at times) Labs: CBC, BMP 01/31/19 07:30 01/31/19 07:30 INR, PTT INR 1.09 (0.83-1.09) 01/31/19 07:30 Problem List - Problems (1) Polysubstance (excluding opioids) dependence, daily use Assessment/Plan: addiction medicine consult requested-Dr Liu to see detox with ativan completed no signs of DTs but periods of situational agitation c/w thiamine, folate, MVI patient not agreeable for substance abuse treatment at this time appreciate psychiatry consultation, no further follow up needed Code(s): F19.20 - OTHER PSYCHOACTIVE SUBSTANCE DEPENDENCE, UNCOMPLICATED (2) Chronic pain Assessment/Plan: chronic pain consultation requested-Dr Nany etienne see patient today will discuss possibilty of CRPS/RSD given long standing multi-modal pain management treatment with minimal relief c/w oxycodone 15mg q 4H completed ativan ETOH detox c/w apply lidoderm patch c/w nabumentone patient requested gabapentin to stopped Code(s): G89.29 - OTHER CHRONIC PAIN Qualifiers: Chronic pain type: other chronic pain Qualified Code(s): G89.29 - Other chronic pain (3) ETOH abuse Code(s): F10.10 - ALCOHOL ABUSE, UNCOMPLICATED (4) Elevated liver enzymes Assessment/Plan: avoid hepatotoxic agents monitor LFTs ETOH cessation Code(s): R74.8 - ABNORMAL LEVELS OF OTHER SERUM ENZYMES (5) Fall Assessment/Plan: gait remain unsteady r/t chronic pain PT following pt fall precautions appreciate neurology consultation EMG shows peripheral neuropathy appreciate consultation from Dr Vargas from neurosurgery C spine MRI to r/o cervical stenosis or Chiari I as per Dr Vargas ideally avoid surgery given EtOH related conditions, which is why pt underwent EPSI's If persistent intractable sypmtoms could consider L4-5 and L5-S1 discectomies , decompression and interbody fusion with instrumentation Pros and cons of treatment approaches, risks and potential benefits discuss no plan for spine surgery at this time given strong ETOH use Code(s): W19.XXXA - UNSPECIFIED FALL, INITIAL ENCOUNTER (6) Prophylactic measure Assessment/Plan: FEN 1L NS bolus given yesterday monitor electrolytes, miantin K>4.0, Mg >2.0 regular diet c/w protonix DVT ambulatory Dispo maintain as in patient full code discharge planning, discussed option of admission to [facility] Code(s): Z29.9 - ENCOUNTER FOR PROPHYLACTIC MEASURES, UNSPECIFIED (7) Weakness of right lower extremity Assessment/Plan: c/w PT EMG with peripheral neuropathy Dr Vargas following pain management Code(s): R29.898 - OT SYMPTOMS AND SIGNS INVOLVING THE MUSCULOSKELETAL SYSTEM (8) Constipation Assessment/Plan: pt stated no BM x 1 week offered miralax yesterday and pt declined agreed to take PO dulcolox, if no response with give MD Code(s): K59.00 - CONSTIPATION, UNSPECIFIED Visit type - Emergency Visit Emergency Visit: Yes ED Registration Date: 01/25/19 Care time: The patient presented to the Emergency Department on the above date and was hospitalized for further evaluation of their emergent condition. - New Patient This patient is new to me today: No - Critical Care Critical Care patient: No - Discharge Referral Referred to [facility] No
[2019-02-01] MEDS: LIDOCAINE PATCH REMOVAL MC SCH ×2 (00:48→00:49)
[2019-02-01] MEDS: NABUMETONE 500 MG TABLET PO SCH ×2 (00:49→09:26)
[2019-02-01] MEDS: oxyCODONE HCL 5 MG TABLET PO PRN ×3 (06:56→15:00)
[2019-02-01] MEDS: LIDOCAINE 5% TOPICAL PATCH TP SCH ×4 (09:13→15:03)
[2019-02-01] MEDS: FOLIC ACID 1 MG TABLET (FP) PO SCH (09:14)
[2019-02-01] MEDS: MULTIVITAMINS (DAILY MVI) TABLET (FP) PO SCH (09:14)
[2019-02-01] MEDS: LORazepam 1 MG TABLET PO PRN (09:14)
[2019-02-01] MEDS: THIAMINE HCL 100 MG TABLET (FP) PO SCH (09:14)
[2019-02-01] MEDS: PANTOPRAZOLE 40 MG TABLET (FP) PO SCH (09:14)
[2019-02-01] MEDS: POLYETHYLENE GLYCOL 3350 119 GM BTL PO SCH (09:15)
--- NOTE | 2019-02-01 09:24 | PN ---
Progress Note, Physician Chief Complaint: pain and gait instability. Persistent generalized pain, feels better today. Had a BM overnight History of Present Illness: Patient is a 34 year old male with a significant past medical history of L5-S1 herniated disc with s1 nerve impairment, R hip arthritis, neuropathy, R knee echondroma, seizures, fatty liver, ETOH abuse, polysubstance abuse. Patient was sent by PCP to ER for alcohol detox and difficulty ambulating due to lower extremity weakness and pain. Patient reports that he has been suffering from chronic pain to lower back, right hip, and right lower extremity. Patient states he has been drinking more than 1 L of whiskey or vodka daily for 22 years. - Current Medication List Current Medications: Active Medications Folic Acid (Folic Acid -) 1 mg PO DAILY [facility] Last Admin: 01/31/19 11:00 Dose: 1 mg Lidocaine (Lidoderm Patch -) 1 patch TP DAILY [facility] Last Admin: 01/31/19 11:00 Dose: 1 patch Lidocaine (Lidoderm Patch -) 1 patch TP DAILY [facility] Last Admin: 01/31/19 11:00 Dose: 1 patch Lorazepam (Ativan -) 1 mg PO BID PRN PRN Reason: ANXIETY Last Admin: 01/31/19 22:02 Dose: 1 mg Miscellaneous (Lidoderm Patch Removal) 1 each MC DAILY@2200 [facility] Last Admin: 02/01/19 00:48 Dose: Not Given Miscellaneous (Lidoderm Patch Removal) 1 each MC DAILY@2200 [facility] Last Admin: 02/01/19 00:49 Dose: Not Given Multivitamins/Minerals/Vitamin C (Tab-A-Vit -) 1 tab PO DAILY [facility] Last Admin: 01/31/19 11:00 Dose: 1 tab Nabumetone (Relafen -) 500 mg PO BID [facility] Last Admin: 02/01/19 00:49 Dose: Not Given Oxycodone HCl (Roxicodone -) 15 mg PO Q4H PRN PRN Reason: PAIN LEVEL 6-10 Last Admin: 02/01/19 06:56 Dose: 15 mg Pantoprazole Sodium (Protonix -) 40 mg PO DAILY [facility] Last Admin: 01/31/19 11:00 Dose: 40 mg Polyethylene Glycol (Miralax (For Daily Use) -) 17 gm PO DAILY [facility] Last Admin: 01/31/19 11:00 Dose: 17 grams Thiamine HCl (Vitamin B1 -) 100 mg PO BID [facility] Last Admin: 01/31/19 21:59 Dose: 100 mg - Objective Vital Signs: Vital Signs Temperature 98.1 F 01/31/19 22:00 Pulse Rate 84 01/31/19 22:00 Respiratory Rate 18 01/31/19 22:00 Blood Pressure 127/74 01/31/19 22:00 O2 Sat by Pulse Oximetry (%) 100 01/31/19 21:00 Constitutional: Yes: Well Nourished, No Distress, Anxious Eyes: Yes: WNL, Conjunctiva Clear, EOM Intact HENT: Yes: WNL, Atraumatic, Normocephalic Neck: Yes: WNL, Supple, Trachea Midline Cardiovascular: Yes: WNL, Regular Rate and Rhythm Respiratory: Yes: WNL, Regular, CTA Bilaterally Gastrointestinal: Yes: WNL, Normal Bowel Sounds, Soft ...Rectal Exam: Yes: Deferred Genitourinary: Yes: WNL Breast(s): Yes: WNL Musculoskeletal: Yes: Back Pain, Joint Stiffness, Joint Swelling (right knee, BL lidoderm patches noted) Extremities: Yes: WNL Edema: No Peripheral Pulses WNL: Yes Integumentary: Yes: Tattoos Neurological: Yes: WNL, Alert, Oriented, Unsteady Gait, Weakness ...Motor Strength: LLE, RLE (generaixed weakness) Psychiatric: Yes: WNL, Alert, Agitated (at times , using profaanity in conversation) Labs: CBC, BMP 01/31/19 07:30 01/31/19 07:30 INR, PTT INR 1.09 (0.83-1.09) 01/31/19 07:30 Problem List - Problems (1) Polysubstance (excluding opioids) dependence, daily use Assessment/Plan: addiction medicine consult requested-Dr Liu to see today detox with ativan completed no signs of DTs but periods of situational agitation persists c/w thiamine, folate, MVI patient not agreeable for substance abuse treatment at this time appreciate psychiatry consultation, no further follow up needed Code(s): F19.20 - OTHER PSYCHOACTIVE SUBSTANCE DEPENDENCE, UNCOMPLICATED (2) Chronic pain Assessment/Plan: chronic pain consultation requested-Dr Ayon will see patient today will discuss possibilty of CRPS/RSD given long standing multi-modal pain management treatment with minimal relief c/w oxycodone 15mg q 4H completed ativan ETOH detox c/w apply lidoderm patch c/w nabumentone gabapentin stopped Code(s): G89.29 - OTHER CHRONIC PAIN Qualifiers: Chronic pain type: other chronic pain Qualified Code(s): G89.29 - Other chronic pain (3) ETOH abuse Code(s): F10.10 - ALCOHOL ABUSE, UNCOMPLICATED (4) Elevated liver enzymes Assessment/Plan: avoid hepatotoxic agents monitor LFTs ETOH cessation Code(s): R74.8 - ABNORMAL LEVELS OF OTHER SERUM ENZYMES (5) Fall Assessment/Plan: gait remain unsteady r/t chronic pain PT following pt fall precautions appreciate neurology consultation EMG shows peripheral neuropathy appreciate consultation from Dr Vargas from neurosurgery C spine MRI to r/o cervical stenosis or Chiari I as per Dr Vargas ideally avoid surgery given EtOH related conditions, which is why pt underwent EPSI's If persistent intractable sypmtoms could consider L4-5 and L5-S1 discectomies , decompression and interbody fusion with instrumentation Pros and cons of treatment approaches, risks and potential benefits discuss no plan for spine surgery at this time given strong ETOH use Code(s): W19.XXXA - UNSPECIFIED FALL, INITIAL ENCOUNTER (6) Prophylactic measure Assessment/Plan: FEN monitor electrolytes, miantin K>4.0, Mg >2.0 regular diet c/w protonix DVT ambulatory Dispo maintain as in patient full code discharge planning, discussed option of admission to [facility] Code(s): Z29.9 - ENCOUNTER FOR PROPHYLACTIC MEASURES, UNSPECIFIED (7) Weakness of right lower extremity Assessment/Plan: c/w PT EMG with peripheral neuropathy Dr Vargas following pain management Code(s): R29.898 - OTH SYMPTOMS AND SIGNS INVOLVING THE MUSCULOSKELETAL SYSTEM (8) Constipation Assessment/Plan: large BM overnight still refusing miralax Code(s): K59.00 - CONSTIPATION, UNSPECIFIED Visit type - Emergency Visit Emergency Visit: Yes ED Registration Date: 01/25/19 Care time: The patient presented to the Emergency Department on the above date and was hospitalized for further evaluation of their emergent condition. - New Patient This patient is new to me today: Yes Date on this admission: 02/01/19 - Critical Care Critical Care patient: No - Discharge Referral Referred to [facility] No
[2019-02-01 10:05] VITALS: BP 118/76; PULSE 87; TEMP 98.9
[2019-02-01 11:18] LABS: ALBUMIN 3.5 g/dl (3.4-5.0); BILIRUBIN,TOTAL 0.9 mg/dL (0.2-1); BLOOD UREA NITROGEN 7.5 mg/dL (7-18); CALCIUM 9.2 mg/dL (8.5-10.1); CREATININE 0.5 mg/dL (0.55-1.3); MAGNESIUM 1.8 mg/dL (1.8-2.4); POTASSIUM 4.3 mmol/L (3.5-5.1); TOT PROT 6.9 g/dl (6.4-8.2)
[2019-02-01 11:23] LABS: BASO % 0.5 % (0-2.0); HEMATOCRIT 37.7 % (35.4-49); HEMOGLOBIN 12.9 GM/dL (11.7-16.9); LYMPH % 18.1 % (8-40); MCHC 34.3 g/dl (32.0-35.9); MEAN CELL VOLUME 120.5 fl (80-96); MEAN PLT VOLUME 8.6 fl (7.5-11.1); MONO % 11.1 % (3.8-10.2); NEUT % 67.3 % (42.8-82.8); PLATELET COUNT 230 K/MM3 (134-434); RBC 3.13 M/mm3 (4.00-5.60); RDW 15.6 % (11.9-15.9)
[2019-02-01 11:26] LABS: MCH 41.4 pg (25.7-33.7)
--- NOTE | 2019-02-01 13:27 | CONSULT ---
Consult Detox [facility] Reason for Current Admission/Consult: Patient was admitted for elevated liver function tests due to alcohol binging. But he also admits to polysubstance use. Referred by:: [facility] - History History of Present Illness: Patient is a 34 year old male with history of Chronic Pain from spinal pathology. He also had a tendon tear in the left hand which also gives him chronic pain. He admits to having abused oral oipioids buying oxycodone illicitly. He does not see this as his primary problem However, he does admit to being alcohol dependent and having binged prior to being admitted to the hospital. He admits to using more than one liter of hard liquor per day. He also admits to a gambling problem which he says he now has under control. 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 He is not open to attending rehab or to be referred to an MAT program. - History Source History Provided By: Patient Limitations to Obtaining History: Physical Impairment - Alcohol/Substance Use Hx Alcohol Use: Yes (over 1 liter per day of hard liquor) Hx Substance Use: Yes (benzo illicitly used ) Hx Substance Use Treatment: No (Never attempted detox or rehab in the past.) - Current Drug/Alcohol Use Alcohol Route: Oral Frequency: Daily Amount used: 1 liter hard liquor Age of first use: 19 Date of Last Use: 01/30/19 - Past Medical History Gastrointestinal: Yes: Gastritis Psych: Yes: Addictions, Anxiety Musculoskeletal: Yes: Chronic low back pain - Past Surgical History Additional Surgical History: left hand tendon repair - Significant Medical Findings: Cor: S1, S2, no murmurs Lungs: Clear to Auscultation and percussion Abdomen: Protuberant, obese, non-tender, normal bowel sounds. Ext: Many tattoos upper and lower extremities, extensive, normal capillary refill and pulses bilaterally. CIWA Score - CIWA Score Nausea/Vomitin-No Nausea/No Vomiting Muscle Tremors: None Anxiety: 0-No Anxiety, at Ease Agitation: 0-Normal Activity Paroxysmal Sweats: No Perspiration Orientation: 0-Oriented Tacttile Disturbances: 0-None Auditory Disturbances: 0-None Visual Disturbances: 0-None Headache: 0-None Present CIWA-Ar Total Score: 0 Assessment Plan - Diagnosis (1) ETOH abuse Status: Acute (2) Elevated liver enzymes Status: Acute (3) Polysubstance (excluding opioids) dependence, daily use Status: Acute - Plan Plan: 1. Alcohol Dependence: Patient does not view this as his main problem. He believes his primary problem is his chronic back pain and injuries that give him pain He is not open to follow up in rehab or to any outpatient MAT program. However, this insurance underwriter sales did make it available to him and if he feels he ever needs help in stopping ETOH use, then he can enter detox and follow up with rehab. His longest period of sobriety was 45 days, so the prospect of his remaining abstinent is quite low.
[2019-02-01 15:29] LABS: ANISOCYTOSIS 2+; MACROCYTOSIS 2+; PLATELET ESTIMATE NORMAL
--- NOTE | 2019-02-01 16:50 | CONSULT ---
Consult Consult Specialty:: Pain Management Reason for Consultation:: Back pain and Rt leg/ Knee pain - History of Present Illness Chief Complaint: Back pain and Rt Knee pain History of Present Illness: This is 34 yr old gentleman with h/o polysubstance abuse and chronic pain and Low back amy and Rt Knee pain. His not cooperative and not able to get history from him in detail. He did mention Patch is helping him and had 2 epidural and if liver function improve then lumbar fusion. - History Source History Provided By: Patient Limitations to Obtaining History: Poor Historian - Past Medical History Gastrointestinal: Yes: Gastritis Psych: Yes: Addictions, Anxiety Musculoskeletal: Yes: Chronic low back pain - Past Surgical History Additional Surgical History: left hand tendon repair - Alcohol/Substance Use Hx Alcohol Use: Yes (over 1 liter per day of hard liquor) - Smoking History Smoking history: Former smoker Have you smoked in the past 12 months: Yes Aproximately how many cigarettes per day: 8 If you are a former smoker, when did you quit?: last week - Social History Usual Living Arrangement: Alone ADL: Independent History of Recent Travel: No Home Medications - Allergies Allergies/Adverse Reactions: Allergies Allergy/AdvReac Type Severity Reaction Status Date / Time No Known Allergies Allergy Verified 01/25/19 11:42 - Home Medications Home Medications: Ambulatory Orders Pantoprazole Sodium [Protonix] 40 mg PO DAILY 10/25/18 Tramadol HCl 50 mg PO PRN PRN 01/25/19 Review of Systems Unable to obtain ROS, reason: not very cooperative - Review of Systems Musculoskeletal: reports: Back Pain, Other (Rt knee pain) Physical Exam Vital Signs: Vital Signs Temperature 98.9 F 02/01/19 09:55 Pulse Rate 87 02/01/19 09:55 Respiratory Rate 20 02/01/19 09:55 Blood Pressure 118/76 02/01/19 09:55 O2 Sat by Pulse Oximetry (%) 100 02/01/19 09:00 Constitutional: Yes: Well Nourished, Calm Eyes: Yes: WNL Musculoskeletal: Yes: Back Pain, Joint Stiffness, Other (RT Knne - patch +) Labs: CBC, BMP 02/01/19 10:28 02/01/19 10:28 Imaging - Results MRI: Report Reviewed Assessment/Plan Limited Discussion Chart reviewed. Physical therapy and HEP on discharge F/U with Spine Surgeon Neurologist, GI and Detox. Weaning of opioids Continue current care Rotation of opioid Thanks Dr. Ayon
[2019-02-01] MEDS ORDERED: TAPENTADOL HYDROCHLORIDE 50 MG TABLET PO PRN (17:21)
--- NOTE | 2019-02-01 18:55 | DS ---
Physical Exam: SUBJECTIVE: Patient seen and examined OBJECTIVE: Vital Signs Period Temp Pulse Resp BP Sys/Araujo Pulse Ox Last 24 Hr 98.1 F-98.9 F 84-87 18-20 118-127/74-76 100-100 PHYSICAL EXAM Constitutional: Yes: Well Nourished, No Distress, Anxious Eyes: Yes: WNL, Conjunctiva Clear, EOM Intact HENT: Yes: WNL, Atraumatic, Normocephalic Neck: Yes: WNL, Supple, Trachea Midline Cardiovascular: Yes: WNL, Regular Rate and Rhythm Respiratory: Yes: WNL, Regular, CTA Bilaterally Gastrointestinal: Yes: WNL, Normal Bowel Sounds, Soft ...Rectal Exam: Yes: Deferred Genitourinary: Yes: WNL Breast(s): Yes: WNL Musculoskeletal: Yes: Back Pain, Joint Stiffness, Joint Swelling (right knee, BL lidoderm patches noted) Extremities: Yes: WNL Edema: No Peripheral Pulses WNL: Yes Integumentary: Yes: Tattoos Neurological: Yes: WNL, Alert, Oriented, Unsteady Gait, Weakness ...Motor Strength: LLE, RLE (generaixed weakness) Psychiatric: Yes: WNL, Alert, Agitated (at times , using profaanity in conversation) LABS Laboratory Results - last 24 hr 02/01/19 02/01/19 10:28 10:28 WBC 5.0 RBC 3.13 L Hgb 12.9 Hct 37.7 MCV 120.5 H MCH 41.4 H MCHC 34.3 RDW 15.6 Plt Count 230 MPV 8.6 Absolute Neuts (auto) 3.4 Neutrophils % 67.3 Lymphocytes % 18.1 Monocytes % 11.1 H Eosinophils % 3.0 Basophils % 0.5 Nucleated RBC % 0 Hypochromia 0 Platelet Estimate Normal Polychromasia 0 Poikilocytosis 0 Anisocytosis 2+ Microcytosis 0 Macrocytosis 2+ Sodium 140 Potassium 4.3 Chloride 105 Carbon Dioxide 27 Anion Gap 8 BUN 7.5 Creatinine 0.5 L Est GFR (CKD-EPI)AfAm 165.02 Est GFR (CKD-EPI)NonAf 142.38 Random Glucose 88 Calcium 9.2 Magnesium 1.8 Total Bilirubin 0.9 AST 71 H ALT 83 H Alkaline Phosphatase 99 otal Protein 6.9 Albumin 3.5 HOSPITAL COURSE: Date of Admission:01/25/19 Date of Discharge: 02/01/19 Chief Complaint: pain and gait instability. Persistent generalized pain, feels better today. Had a BM overnight History of Present Illness: Patient is a 34 year old male with a significant past medical history of L5-S1 herniated disc with s1 nerve impairment, R hip arthritis, neuropathy, R knee echondroma, seizures, fatty liver, ETOH abuse, polysubstance abuse. Patient was sent by PCP to ER for alcohol detox and difficulty ambulating due to lower extremity weakness and pain. Patient reports that he has been suffering from chronic pain to lower back, right hip, and right lower extremity. Patient states he has been drinking more than 1 L of whiskey or vodka daily for 22 years. Problem List - Problems (1) Polysubstance (excluding opioids) dependence, daily use Assessment/Plan: addiction medicine saw patient and he is not open to attending rehab or interested in ETOH cessation detox with ativan completed no signs of DTs during stay, advised patient to c/w thiamine, folate, [facility] psychiatry consultation abtained and , no further follow up needed Code(s): F19.20 - OTHER PSYCHOACTIVE SUBSTANCE DEPENDENCE, UNCOMPLICATED (2) Chronic pain Assessment/Plan: Seen by Dr Ayon chronic pain. Plan is to wean oxycodone and dc home on [place] c/w apply lidoderm patch to BL knee at home c/w nabumentone gabapentin stopped as per patient request Code(s): G89.29 - OTHER CHRONIC PAIN Qualifiers: Chronic pain type: other chronic pain Qualified Code(s): G89.29 - Other chronic pain (3) ETOH abuse Code(s): F10.10 - ALCOHOL ABUSE, UNCOMPLICATED (4) Elevated liver enzymes Assessment/Plan: avoid hepatotoxic agents advised patient for ETOH cessation Code(s): R74.8 - ABNORMAL LEVELS OF OTHER SERUM ENZYMES (5) Fall Assessment/Plan: gait remain unsteady r/t chronic pain neurology consultation onatined and EMG shows peripheral neuropathy appreciate consultation from Dr Vargas from neurosurgery C spine MRI to r/o cervical stenosis or Chiari I as per Dr Vargas ideally avoid surgery given EtOH related conditions, which is why pt underwent EPSI's If persistent intractable sypmtoms could consider L4-5 and L5-S1 discectomies , decompression and interbody fusion with instrumentation Pros and cons of treatment approaches, risks and potential benefits discuss no plan for spine surgery at this time given strong ETOH use Advised patient to f/u with Dr Vargas after ETOH cessation Code(s): W19.XXXA - UNSPECIFIED FALL, INITIAL ENCOUNTER (6) Prophylactic measure Assessment/Plan: Low fat low cholesterol diet Code(s): Z29.9 - ENCOUNTER FOR PROPHYLACTIC MEASURES, UNSPECIFIED (7) Weakness of right lower extremity Assessment/Plan: EMG with peripheral neuropathy Code(s): R29.898 - OTH SYMPTOMS AND SIGNS INVOLVING THE MUSCULOSKELETAL SYSTEM (8) Constipation Assessment/Plan: Advised patient to continue miralax at home daily Code(s): K59.00 - CONSTIPATION, UNSPECIFIED Minutes to complete discharge: 30 Discharge Summary Reason For Visit: CHRONIC PAIN Hospital Course: HOSPITAL COURSE: Date of Admission:01/25/19 Date of Discharge: 02/01/19 Chief Complaint: pain and gait instability. Persistent generalized pain, feels better today. Had a BM overnight History of Present Illness: Patient is a 34 year old male with a significant past medical history of L5-S1 herniated disc with s1 nerve impairment, R hip arthritis, neuropathy, R knee echondroma, seizures, fatty liver, ETOH abuse, polysubstance abuse. Patient was sent by PCP to ER for alcohol detox and difficulty ambulating due to lower extremity weakness and pain. Patient reports that he has been suffering from chronic pain to lower back, right hip, and right lower extremity. Patient states he has been drinking more than 1 L of whiskey or vodka daily for 22 years. Problem List - Problems (1) Polysubstance (excluding opioids) dependence, daily use Assessment/Plan: addiction medicine saw patient and he is not open to attending rehab or interested in ETOH cessation detox with ativan completed no signs of DTs during stay, advised patient to c/w thiamine, folate, [facility] psychiatry consultation abtained and , no further follow up needed Code(s): F19.20 - OTHER PSYCHOACTIVE SUBSTANCE DEPENDENCE, UNCOMPLICATED (2) Chronic pain Assessment/Plan: Seen by Dr Ayon chronic pain. Plan is to wean oxycodone and dc home on [place] c/w apply lidoderm patch to BL knee at home c/w nabumentone gabapentin stopped as per patient request Code(s): G89.29 - OTHER CHRONIC PAIN Qualifiers: Chronic pain type: other chronic pain Qualified Code(s): G89.29 - Other chronic pain (3) ETOH abuse Code(s): F10.10 - ALCOHOL ABUSE, UNCOMPLICATED (4) Elevated liver enzymes Assessment/Plan: avoid hepatotoxic agents advised patient for ETOH cessation Code(s): R74.8 - ABNORMAL LEVELS OF OTHER SERUM ENZYMES (5) Fall Assessment/Plan: gait remain unsteady r/t chronic pain neurology consultation onatined and EMG shows peripheral neuropathy appreciate consultation from Dr Vargas from neurosurgery C spine MRI to r/o cervical stenosis or Chiari I as per Dr Vargas ideally avoid surgery given EtOH related conditions, which is why pt underwent EPSI's If persistent intractable sypmtoms could consider L4-5 and L5-S1 discectomies , decompression and interbody fusion with instrumentation Pros and cons of treatment approaches, risks and potential benefits discuss no plan for spine surgery at this time given strong ETOH use Advised patient to f/u with Dr Vargas after ETOH cessation Code(s): W19.XXXA - UNSPECIFIED FALL, INITIAL ENCOUNTER (6) Prophylactic measure Assessment/Plan: Low fat low cholesterol diet Code(s): Z29.9 - ENCOUNTER FOR PROPHYLACTIC MEASURES, UNSPECIFIED (7) Weakness of right lower extremity Assessment/Plan: EMG with peripheral neuropathy Code(s): R29.898 - OTH SYMPTOMS AND SIGNS INVOLVING THE MUSCULOSKELETAL SYSTEM (8) Constipation Assessment/Plan: Advised patient to continue miralax at home daily Code(s): K59.00 - CONSTIPATION, UNSPECIFIED Patient became very upset when told he would not be discharged home with a prescription for oxycodone. Nucynta 50mg 30 tabs given with instuctions not to take more than 4 per day. Advised patient to follow up with a pain managment doctor-Dr Ayon-or another provider of his choosing - Instructions Diet, Activity, Other Instructions: Patient refused to wait for completion of discharge instruction. Left the hospital un-accompanied Referrals: Chapincito Ayon MD [Staff Physician] - Eamon Liu DO [Staff Physician] - - Home Medications Comprehensive Discharge Medication List: Ambulatory Orders Tramadol HCl 50 mg PO PRN PRN 01/25/19 Folic Acid - 1 mg PO DAILY #0 tablet 02/01/19 Lidocaine 5% Patch [Lidoderm -] 1 patch TP DAILY #30 patch 02/01/19 Lidocaine 5% Patch [Lidoderm -] 1 patch TP DAILY #30 patch 02/01/19 Multivitamins [Multivit ([facility] Formulary)] 1 tab PO DAILY tab 02/01/19 Pantoprazole Sodium [Protonix] 40 mg PO DAILY #30 tablet.dr 02/01/19 Tapentadol Hydrochloride [Nucynta -] 50 mg PO Q6H PRN #30 tablet MDD 4 02/01/19 Problem List - Problems (1) Polysubstance (excluding opioids) dependence, daily use Code(s): F19.20 - OTHER PSYCHOACTIVE SUBSTANCE DEPENDENCE, UNCOMPLICATED (2) Chronic pain Code(s): G89.29 - OTHER CHRONIC PAIN Qualifiers: Chronic pain type: other chronic pain Qualified Code(s): G89.29 - Other chronic pain (3) ETOH abuse Code(s): F10.10 - ALCOHOL ABUSE, UNCOMPLICATED (4) Elevated liver enzymes Code(s): R74.8 - ABNORMAL LEVELS OF OTHER SERUM ENZYMES (5) Fall Code(s): W19.XXXA - UNSPECIFIED FALL, INITIAL ENCOUNTER (6) Prophylactic measure Code(s): Z29.9 - ENCOUNTER FOR PROPHYLACTIC MEASURES, UNSPECIFIED (7) Weakness of right lower extremity Code(s): R29.898 - OTH SYMPTOMS AND SIGNS INVOLVING THE MUSCULOSKELETAL SYSTEM (8) Constipation Code(s): K59.00 - CONSTIPATION, UNSPECIFIED This patient is new to me today: No Emergency Visit: Yes ED Registration Date: 01/25/19 Care time: The patient presented to the Emergency Department on the above date and was hospitalized for further evaluation of their emergent condition. Critical Care patient: No - Discharge Referral Referred to [facility] Med [facility] No
== END 2019-02-01 17:49 | disposition home or self-care (01) | DRG 861 ==
LOC: JER 11:37 → JERBED 15:44 → J5S 19:44
PROVIDERS: ADMIT Family Medicine; ATTEND Nurse Practitioner Acute Care
PROC: HZ2ZZZZ Detoxification Services for Substance Abuse Treatment (ICD-10-PCS; principal; 2019-02-01)
DX: G89.29 Other chronic pain (principal); F10.20 Alcohol dependence, uncomplicated; M51.27 Other intervertebral disc displacement, lumbosacral region; M16.11 Unilateral primary osteoarthritis, right hip; K76.0 Fatty (change of) liver, not elsewhere classified; M54.5 Low back pain; R07.89 Other chest pain; R10.9 Unspecified abdominal pain; R29.898 Other symptoms and signs involving the musculoskeletal system; M54.17 Radiculopathy, lumbosacral region; W19.XXXA Unspecified fall, initial encounter; G62.89 Other specified polyneuropathies; R56.9 Unspecified convulsions; R74.8 Abnormal levels of other serum enzymes; Y90.4 Blood alcohol level of 80-99 mg/100 ml; E66.3 Overweight; Z68.28 Body mass index [BMI] 28.0-28.9, adult; M51.36 Other intervertebral disc degeneration, lumbar region; K59.00 Constipation, unspecified; F41.9 Anxiety disorder, unspecified; K29.70 Gastritis, unspecified, without bleeding; F19.20 Other psychoactive substance dependence, uncomplicated; Z87.891 Personal history of nicotine dependence
CPT/HCPCS: 36415; 70450-TC; 72146-TC; 72148-TC; 72156-TC; 73030-TC-RT-FY; 73070-TC-RT-FY; 73090-TC-RT-FY; 73523-TC-FY; 73590-TC-RT-FY; 76700-TC; 80053; 80074; 80307; 82607; 82746; 83690; 83735; 84311; 84443; 84484; 85025; 85027; 85610; 86704; 86706; 86707; 86708; 86709; 87340; 87389; 93005; 93010; 93970-TC; 95860-TC; 97116-GP; 97161-GP; 99283-25; A9579; J7030